=== PATIENT | female | born 1990 | race Caucasian/White ===

== ENCOUNTER 2016-06-16 09:31 | Outpatient (CLI) | payer MEDICAID ==
--- NOTE | 2016-06-16 10:00 | L&D Flow Sheet ---
LD Flowsheet Datetime Report Generated by CPN: 06/16/2016 10:00 Datetime: 06/16/2016 09:59 Vital Signs NBP Sys/Vilma/Mean (mmHg): 132 (QS system process) : 74 (QS system process) : 96 (QS system process) Pulse: 97 (QS system process)
[2016-06-16 10:34] LABS: APPEARANCE,URINE CLEAR; BILIRUBIN,URINE NEGATIVE (NEGATIVE); GLUCOSE, URINE NEGATIVE (NEGATIVE); KETONES,URINE NEGATIVE (NEGATIVE); LEUKOCYTE ESTERASE,URINE SMALL (NEGATIVE); NITRITE,URINE NEGATIVE (NEGATIVE); PROTEIN,URINE NEGATIVE (NEGATIVE); URINE SPECIFIC GRAVITY 1.006; UROBILINOGEN,URINE NEGATIVE mg/dL (<2.0)
[2016-06-16 10:45] LABS: URINE BARBITURATES SCREEN NEGATIVE; URINE METHADONE SCREEN NEGATIVE; URINE OPIATES LOW NEGATIVE; URINE PHENCYCLIDINE SCREEN NEGATIVE
[2016-06-16 10:57] LABS: ABSOLUTE BASOPHILS # (AUTO) 0.1 10^3/uL (0.0-0.2); ABSOLUTE EOSINOPHILS # (AUTO) 0.7 10^3/uL (0.0-0.6); ABSOLUTE LYMPHOCYTES (AUTO) 2.9 10^3/uL (0.5-4.7); ABSOLUTE MONOCYTES (AUTO) 0.8 10^3/uL (0.1-1.4); BASOPHILS % (AUTO) 0.7 % (0-2); EOSINOPHILS % (AUTO) 4.7 % (0-6); HEMATOCRIT 33.5 % (36.0-47.0); HEMOGLOBIN 11.7 g/dL (12.0-15.5); HGB HCT DIFFERENCE 1.6; LYMPHOCYTES % (AUTO) 18.4 % (13-45); MEAN CORPUSCULAR HEMOGLOBIN 30.2 pg (27.0-33.4); MEAN CORPUSCULAR HGB CONC 34.9 g/dL (32.0-36.0); MEAN CORPUSCULAR VOLUME 87 fl (80-97); MONOCYTES % (AUTO) 5.3 % (3-13); RED BLOOD COUNT 3.87 10^6/uL (3.72-5.28); RED CELL DISTRIBUTION WIDTH 12.5 % (11.5-14.0); SEGMENTED NEUTROPHILS % (AUTO) 70.9 % (42-78); WHITE BLOOD COUNT 15.5 10^3/uL (4.0-10.5)
[2016-06-16 11:24] LABS: ALANINE AMINOTRANSFERASE 22 U/L (9-52); ALBUMIN 3.6 g/dL (3.5-5.0); ALKALINE PHOSPHATASE 124 U/L (38-126); ANION GAP 9 (5-19); ASPARTATE AMINO TRANSFERASE 18 U/L (14-36); BILIRUBIN,TOTAL 0.5 mg/dL (0.2-1.3); BLOOD UREA NITROGEN 11 mg/dL (7-20); CALCIUM 9.3 mg/dL (8.4-10.2); CARBON DIOXIDE 22 mmol/L (22-30); CHLORIDE 105 mmol/L (98-107); CREATININE RESULT 0.48 mg/dL (0.52-1.25); GLUCOSE 73 mg/dL (75-110); LDH 463 U/L (313-618); POTASSIUM 4.3 mmol/L (3.6-5.0); SODIUM 135.6 mmol/L (137-145); TOTAL PROTEIN 6.7 g/dL (6.3-8.2); URIC ACID 3.7 mg/dL (2.5-6.2)
--- NOTE | 2016-06-23 09:55 | Non Stress Test Report ---
Non Stress Test Datetime Report Generated by CPN: 06/23/2016 09:55 DEMOGRAPHIC EGA NST: 37.0 INDICATION Indication for Study: Ordered by Provider Indication for Study (NST) Other: pih work up MONITORING Monitor Explained: Monitor Explained; Test Explained; Patient Verbalized Understanding Time on Monitor: 06/16/2016 10:05 Time off Monitor: 06/16/2016 11:42 NST Duration: 97 NST INTERVENTIONS NST Interventions: PO Hydration; Reposition Patient BABY A: [id number] BABY A Movement : Present Contraction Frequency : x1 FHR Baseline : 135 Accelerations : 15X15 Decelerations : None Variability : Moderate 6-25bpm NST Review: Meets Criteria for Reactive NST NST Review and Verified By : Cheyenne RN NST Results: Reactive NST REPORT Report Trigger: Send Report
== END 2016-06-16 11:50 | disposition home or self-care (01) ==
LOC: LC 09:31
PROVIDERS: ATTEND Obstetrics & Gynecology
PROC: 4A1HXCZ Monitoring of Products of Conception, Cardiac Rate, External Approach (ICD-10-PCS; principal; 2016-06-16)
DX: O14.93 Unspecified pre-eclampsia, third trimester (principal); Z3A.37 37 weeks gestation of pregnancy
CPT/HCPCS: 36415; 59025; 80053; 80307; 81001; 83615; 84550; 85025

== ENCOUNTER 2016-06-23 10:00 | Inpatient (IN) | payer MEDICAID ==
[2016-06-23] MEDS ORDERED: OXYTOCIN/NORMAL SALINE 1,000 ML IV PRN (10:03)
[2016-06-23] MEDS ORDERED: RINGERS SOLUTION,LACTATED 300 ML IV ONE (10:03)
[2016-06-23 10:26] LABS: APPEARANCE,URINE TURBID; BILIRUBIN,URINE NEGATIVE (NEGATIVE); GLUCOSE, URINE NEGATIVE (NEGATIVE); KETONES,URINE NEGATIVE (NEGATIVE); LEUKOCYTE ESTERASE,URINE LARGE (NEGATIVE); NITRITE,URINE NEGATIVE (NEGATIVE); PROTEIN,URINE NEGATIVE (NEGATIVE); URINE SPECIFIC GRAVITY 1.017; UROBILINOGEN,URINE NEGATIVE mg/dL (<2.0)
[2016-06-23] MEDS ORDERED: LIDOCAINE 1% INJ-PF (10 MG/ML) 30 ML SDV ONE (10:32)
[2016-06-23] MEDS ORDERED: OXYTOCIN/NORMAL SALINE 20 UNIT/1,000 ML RTUINJ ONE (10:32)
[2016-06-23] MEDS ORDERED: MISOPROSTOL 0.2 MG TABLET ONE (10:32)
[2016-06-23 10:41] LABS: URINE BARBITURATES SCREEN NEGATIVE; URINE METHADONE SCREEN NEGATIVE; URINE OPIATES LOW NEGATIVE; URINE PHENCYCLIDINE SCREEN NEGATIVE
[2016-06-23 10:43] LABS: ABSOLUTE BASOPHILS # (AUTO) 0.1 10^3/uL (0.0-0.2); ABSOLUTE EOSINOPHILS # (AUTO) 0.7 10^3/uL (0.0-0.6); ABSOLUTE LYMPHOCYTES (AUTO) 2.8 10^3/uL (0.5-4.7); ABSOLUTE MONOCYTES (AUTO) 0.9 10^3/uL (0.1-1.4); ABSOLUTE NEUT (AUTO) 10.9 10^3/uL (1.7-8.2); BASOPHILS % (AUTO) 0.5 % (0-2); EOSINOPHILS % (AUTO) 4.9 % (0-6); HEMOGLOBIN 11.5 g/dL (12.0-15.5); HGB HCT DIFFERENCE 2.5; LYMPHOCYTES % (AUTO) 17.9 % (13-45); MEAN CORPUSCULAR HGB CONC 35.9 g/dL (32.0-36.0); MEAN CORPUSCULAR VOLUME 86 fl (80-97); MONOCYTES % (AUTO) 5.9 % (3-13); RED CELL DISTRIBUTION WIDTH 12.4 % (11.5-14.0); SEGMENTED NEUTROPHILS % (AUTO) 70.8 % (42-78); WHITE BLOOD COUNT 15.4 10^3/uL (4.0-10.5)
[2016-06-23] MEDS: RINGERS SOLUTION,LACTATED 1,000 ML IV PRN ×2 (11:49→21:28)
--- NOTE | 2016-06-23 12:00 | L&D Flow Sheet ---
LD Flowsheet Datetime Report Generated by CPN: 06/23/2016 12:00 Datetime: 06/23/2016 11:50 NBP Sys/Vilma/Mean (mmHg): 119 (QS system process) : 70 (QS system process) : 89 (QS system process) Pulse: 86 (QS system process) I/O Interventions: Up to BR (Sandra Hurtado RN) Communication: RN at Bedside (Sandra Hurtado RN) LaborFlag: Antepartum (QS system process) Datetime: 06/23/2016 11:45 Stage of : Antepartum (Sandra Hurtado RN) Respirations: 18 (Sandra Hurtado RN) Monitor Mode: External (Sandra Hurtado RN) Monitor Interventions for UA: [place] [employer] Adjusted (Sandra Hurtado RN) Frequency (min): IRRITABILITY (Sandra Hurtado RN) Quality: Mild (Sandra Hurtado RN) Resting Tone (Palpate): Relaxed (Sandra Hurtado RN) Monitor Mode: External US (Sandra Hurtado RN) Monitor Interventions for FHR: Ultrasound Adjusted (Sandra Hurtado RN) FHR Baseline Rate : 135 (Sandra Hurtado RN) FHR Baseline Changes: No Baseline Change (Sandra Hurtado RN) Variability: Moderate 6-25 bpm (Sandra Hurtado RN) Accelerations: 15X15 (Sandra Hurtado RN) Decelerations: None (Sandra Hurtado RN) Pitocin (milliunit): Pitocin Increased to (milliunits) @ 4 (Sandra Hurtado, MADDY) Communication: RN at Bedside; RN Reviewed Strip (Sandra Hurtado RN) LaborFlag: Antepartum (QS system process) Datetime: 06/23/2016 11:30 Stage of : Antepartum (Sandra Hurtado RN) Respirations: 18 (Sandra Hurtado RN) Monitor Mode: External (Sandra Eliza Roulund, RN) Monitor Interventions for UA: [place] [employer] Adjusted (Sandra Hurtado, MADDY) Frequency (min): IRRITABILITY (Sandra Hurtado, RN) Quality: Mild (Sandra Hurtado, RN) Resting Tone (Palpate): Relaxed (Sandra Hurtado, RN) Monitor Mode: External US (Sandra Hurtado, RN) Monitor Interventions for FHR: Ultrasound Adjusted (Sandra Hurtado, RN) FHR Baseline Rate : 140 (Sandra Hurtado, MADDY) FHR Baseline Changes: No Baseline Change (Sandra Hurtado, MADDY) Variability: Moderate 6-25 bpm (Sandra Hurtado, RN) Accelerations: 15X15 (Sandra Hurtado, RN) Decelerations: None (Sandra Hurtado, MADDY) Pain Presence: None/Denies (Sandra Hurtado, MADDY) Pain Type: N/A (Sandra Hurtado, MADDY) Pain Relief Measures: Comfort Measures (Sandra Hurtado, MADDY) Pain Coping: Talking Through Contractions (Sandra Hurtado, MADDY) Pitocin (milliunit): Pitocin Remains (milliunits) @ 2 (Sandra Hurtado, MADDY) Comfort Measures: Family Support (Sandra Hurtado, MADDY) Communication: RN at Bedside; RN Reviewed Strip; Report Given to @ Brijesh ULRICH CNM (Sandra Hurtado, MADDY) Notification Reason: Status Update; Status; Membrane Status (Sandra Hurtado, MADDY) LaborFlag: Antepartum (QS system process) Datetime: 06/23/2016 11:25 Stage of : Antepartum (Sandra Hurtado, MADDY) Monitor Interventions for UA: [place] [employer] Adjusted (Sandra Hurtado, RN) Monitor Interventions for FHR: Ultrasound Adjusted (Sandra Hurtado, MADDY) Dilatation (cm): 1.5 (Sandra Hurtado, RN) Effacement (%): 20 (Sandra Hurtado, RN) Station: -3 (Sandra Hurtado, RN) Exam by: DANISHA HURTADO RN (Sandra Hurtado, RN) Membrane Status: Intact (Sandra Hurtado, RN) Vaginal Bleeding: None (Sandra Hurtado, MADDY) Cervix, Consistency: Moderate (Sandra Hurtado, MADDY) Cervix, Position: Posterior (Sandra Hurtado, RN) Pitocin (milliunit): Pitocin Started (milliunits) @ 2 (Sandra Hurtado, MADDY) Procedures: Sterile Vag Exam (Sandra Hurtado, MADDY) Instructional Method: Verbal; Patient Instructed; Family/Support Person Instructed; Verbalized Understanding (Sandra Hurtado, MADDY) Plan of Care: Plan of Care Discussed; Induction (Sandra Hurtado RN) Unit Routine: Medications (Sandra Hurtado RN) Labor/Induction: Induction (Sandra Hurtado RN) Pain Management: Pain Scale/Goals; Comfort Measures (Sandra Hurtado RN) Medications: Pitocin (Sandra Hurtado, MADDY) Communication: RN at Bedside; RN Reviewed Strip (Sandra Hurtado RN) Datetime: 06/23/2016 11:19 NBP Sys/Vilma/Mean (mmHg): 142 (QS system process) : 78 (QS system process) : 100 (QS system process) Pulse: 94 (QS system process) LaborFlag: Antepartum (QS system process) Datetime: 06/23/2016 11:10 Stage of : Antepartum (Sandra Hurtado RN) Procedures: Consents Signed (Sandra Hurtado RN) I/O Interventions: Up to BR (Sandra Hurtado RN) Communication: RN at Bedside; RN Reviewed Strip (Sandra Hurtado RN) Datetime: 06/23/2016 10:44 NBP Sys/Vilma/Mean (mmHg): 124 (QS system process) : 75 (QS system process) : 95 (QS system process) Pulse: 96 (QS system process) LaborFlag: Antepartum (QS system process) Datetime: 06/23/2016 10:23 IV/Blood Work: Labs Drawn (Sandra Tesfayeluevens, RN) Communication: RN at Bedside (Sandra Tesfayelund, RN) Datetime: 06/23/2016 10:20 Stage of : Antepartum (Sandra Hurtado, RN) IV/Blood Work: IV Started; IV Bolus Started; New IV Bag Hung (Sandra Hurtado, RN) Communication: RN at Bedside; RN Reviewed Strip (Sandra Hurtado, RN) Datetime: 06/23/2016 10:15 Stage of : Antepartum (Sandra Hurtado RN) NBP Sys/Vilma/Mean (mmHg): 129 (QS system process) : 85 (QS system process) : 101 (QS system process) Pulse: 106 (QS system process) Monitor Mode: External (Sandra Hurtado RN) Monitor Interventions for UA: [employer] Adjusted (Sandra Hurtado RN) Resting Tone (Palpate): Relaxed (Sandra Hurtado RN) Monitor Mode: External US (Sandra Hurtado RN) Monitor Interventions for FHR: Ultrasound Adjusted (Sandra Hurtado RN) Pain Scale: 0 (Sandra Hurtado RN) Pain Presence: None/Denies (Sandra Hurtado RN) Pain Type: N/A (Sandra Hurtado RN) Pain Goal: 1 (Sandra Hurtado RN) Pain Relief Measures: Comfort Measures (Sandra Hurtado RN) Membrane Status: Intact (Sandra Hurtado RN) Vaginal Bleeding: None (Sadnra Hurtado RN) Level of Consciousness: Fully Conscious (Sandra Hurtado RN) DTR's/Clonus: DTRs 1+; No Clonus (Sandra Hurtado RN) Headache: [place] (Sandra Hurtado RN) Breath Sounds, Left: Clear and Equal (Sandra Hurtado RN) Breath Sounds, Right: Clear and Equal (Sandra Hurtado RN) Nausea/Vomiting: [place] (Sandra Hurtado RN) RUQ Epigastric Pain: [place] (Sandra Hurtado, MADDY) Oxygen Method: Room Air (Sandra Hurtado, MADDY) Patient Position/Activity: Left Tilt; Low Fowlers (Sandra Hurtado, MADDY) Comfort Measures: Family Support (Sandra Hurtado RN) I/O Interventions: Popsicle; Clear Liquids Given; Up to BR (Sandra Hurtado, MADDY) Anesthesia Plans: None (Sandra Hurtado RN) Instructional Method: Verbal; Patient Instructed; Family/Support Person Instructed; Verbalized Understanding (Sandra Hurtado RN) Plan of Care: Plan of Care Discussed; Vaginal Delivery; Induction (Sandra Hurtado, MADDY) Unit Routine: [place] to Room; Call Elder; Bed; Visiting Policy; Waiting Areas; Phone/Cell Phone Use; Photography; Unit Personnel; Handwashing; Monitoring; Safety/Fall Risk Prevention; Diet/Nutrition Services; Bathroom Privileges (Sandra Hurtado, MADDY) Labor/Induction: Labor Stages; Induction (Sandra Hurtado RN) Pain Management: Epidural; Pain Scale/Goals; Comfort Measures (Sandra Hurtado RN) Medications: Pitocin (Sandra Hurtado, MADDY) Related: Common Discomforts of ; Maternal Physical Changes; Maternal Emotional Changes; Nutrition; Hydration; Activity and Rest (Sandra Hurtado, MADDY) Communication: RN at Bedside; RN Reviewed Strip (Sandra Hurtado RN) LaborFlag: Antepartum (QS system process)
--- NOTE | 2016-06-23 14:00 | L&D Flow Sheet ---
LD Flowsheet Datetime Report Generated by CPN: 06/23/2016 14:00 Datetime: 06/23/2016 13:56 Pulse: 97 (QS system process) SpO2 (%): 97 (QS system process) LaborFlag: Labor (QS system process) Datetime: 06/23/2016 13:51 Pulse: 92 (QS system process) SpO2 (%): 97 (QS system process) LaborFlag: Labor (QS system process) Datetime: 06/23/2016 13:49 NBP Sys/Vilma/Mean (mmHg): 121 (QS system process) : 85 (QS system process) : 98 (QS system process) Pulse: 90 (QS system process) LaborFlag: Labor (QS system process) Datetime: 06/23/2016 13:48 Comments: RN at bedside adjusting monitors (Molly Camp, RNC) Datetime: 06/23/2016 13:46 Pulse: 101 (QS system process) SpO2 (%): 97 (QS system process) LaborFlag: Labor (QS system process) Datetime: 06/23/2016 13:45 Stage of : Labor (Sandra Hurtado RN) Respirations: 18 (Sandra Hurtado RN) Temperature (F): 98.2 (Sandra Hurtado RN) Temperature (C): 36.8 (QS system process) Monitor Mode: External (Sandra Hurtado RN) Monitor Interventions for UA: [place] Adjusted (Sandra Hurtado RN) Frequency (min): 2-3 (Sandra Hurtado RN) Quality: Moderate (Sandra Hurtado RN) Duration (sec): 60-70 (Sandra Hurtado, MADDY) Resting Tone (Palpate): Relaxed (Sandra Hurtado RN) Monitor Mode: External US (Sandra Hurtado RN) Monitor Interventions for FHR: Ultrasound Adjusted (Sandra Hurtado RN) FHR Baseline Rate : 130 (Sandra Hurtado RN) FHR Baseline Changes: No Baseline Change (Sandra Hurtado, MADDY) Variability: Moderate 6-25 bpm (Sandra Hurtado, RN) Accelerations: 15X15 (Sandra Hurtado, RN) Decelerations: None (Sandra Hurtado, MADDY) Pain Relief Measures: Comfort Measures (Sandra Hurtado RN) Pain Coping: Breathing Through Contractions (Sandra Hurtado RN) Pitocin (milliunit): Pitocin Increased to (milliunits) @ 18 (Sandra Hurtado RN) IV/Blood Work: IV Infusing per Order (Sandra Hurtado RN) Comfort Measures: Breathing/Relaxation; Rocking Chair; Family Support (Sandra Hurtado RN) Communication: RN at Bedside; RN Reviewed Strip (Sandra Hurtado RN) LaborFlag: Labor (QS system process) Datetime: 06/23/2016 13:41 Pulse: 90 (QS system process) SpO2 (%): 97 (QS system process) LaborFlag: Labor (QS system process) Datetime: 06/23/2016 13:36 Pulse: 93 (QS system process) SpO2 (%): 97 (QS system process) LaborFlag: Labor (QS system process) Datetime: 06/23/2016 13:31 NBP Sys/Vilma/Mean (mmHg): 134 (QS system process) : 63 (QS system process) : 90 (QS system process) Pulse: 93 (QS system process) LaborFlag: Labor (QS system process) Datetime: 06/23/2016 13:30 Stage of : Labor (aSndra Hurtado RN) Respirations: 18 (Sandra Hurtado RN) Monitor Mode: External (Sandra Hurtado RN) Monitor Interventions for UA: [place] Adjusted (Sandra Hurtado RN) Frequency (min): 2-2.5 (Sandra Hurtado RN) Quality: Moderate (Sandra Hurtado RN) Duration (sec): 60-70 (Sandra Hurtado, MADDY) Resting Tone (Palpate): Relaxed (Sandra Hurtado, MADDY) Monitor Mode: External US (Sandra Hurtado RN) Monitor Interventions for FHR: Ultrasound Adjusted (Sandra Hurtado RN) FHR Baseline Rate : 135 (Sandar Hurtado RN) FHR Baseline Changes: No Baseline Change (Sandra Hurtado RN) Accelerations: 15X15 (Sandra Hurtado RN) Decelerations: None (Sandra Hurtado RN) Pain Scale: 3 (Sandra Hurtado RN) Pain Presence: Intermittent (Sandra Hurtado RN) Pain Type: Contraction (Sandra Hurtado, RN) Pain Location: Abdomen (Sandra Hurtado, RN) Pain Relief Measures: Comfort Measures (Sandra Hurtado, MADDY) Pain Coping: Talking Through Contractions (Sandra Hurtado, MADDY) Pitocin (milliunit): Pitocin Increased to (milliunits) @ 16 (Sandra Hurtado, RN) Comfort Measures: Family Support (Sandra Hurtado, MADDY) Communication: RN at Bedside; RN Reviewed Strip (Sandra Hurtado RN) LaborFlag: Labor (QS system process) Datetime: 06/23/2016 13:15 Stage of : Labor (Sandra Hurtado RN) Respirations: 18 (Sandra Hurtado RN) Monitor Mode: External (Sandra Hurtado, RN) Monitor Interventions for UA: [place] Adjusted (Sandra Hurtado RN) Frequency (min): 2-3 (Sandra Hurtado, MADDY) Quality: Moderate (Sandra Hurtado, RN) Duration (sec): 60-70 (Sandra Hurtado, RN) Resting Tone (Palpate): Relaxed (Sandra Hurtado, RN) Monitor Mode: External US (Sandra Hurtado RN) Monitor Interventions for FHR: Ultrasound Adjusted (Sandra Hurtado RN) Comments: UTD- MOVING EFM (Sandra Hurtado, MADDY) Pain Relief Measures: Comfort Measures (Sandra Hurtado RN) Pain Coping: Talking Through Contractions (Sandra Hurtado, MADDY) Pitocin (milliunit): Pitocin Increased to (milliunits) @ 14 (Sandra Hurtado, RN) IV/Blood Work: IV Infusing per Order (Sandra Hurtado, MADDY) Comfort Measures: Rocking Chair; Family Support (Sandra Hurtado, RN) I/O Interventions: Up to BR (Sandra Hurtado, MADYD) Communication: RN at Bedside; RN Reviewed Strip (Sandra Hurtado RN) LaborFlag: Labor (QS system process) Datetime: 06/23/2016 13:02 Stage of : Labor (Sandra Hurtado RN) Respirations: 18 (Sandra Hurtado RN) Monitor Mode: External (Sandra Hurtado RN) Frequency (min): 2-3 (Sandra Hurtado RN) Quality: Moderate (Sandra Hurtado RN) Duration (sec): 60-70 (Sandra Hurtado, MADDY) Resting Tone (Palpate): Relaxed (Sandra Hurtado, MADDY) Monitor Mode: External US (Sandra Hurtado RN) FHR Baseline Rate : 130 (Sandra Hurtado RN) FHR Baseline Changes: No Baseline Change (Sandra Hurtado RN) Variability: Moderate 6-25 bpm (Sandra Hurtado, MADDY) Accelerations: 15X15 (Sandra Hurtado, MADDY) Decelerations: None (Sandra Hurtado RN) Pain Scale: 2 (Sandra Hurtado RN) Pain Presence: Intermittent (Sandra Hurtado RN) Pain Type: Contraction (Sandra Hurtado RN) Pain Location: Abdomen (Sandra Hurtado, MADDY) Pain Relief Measures: Comfort Measures (Sandra Hurtado RN) Pain Coping: Talking Through Contractions (Sandra Hurtado, MADDY) Pitocin (milliunit): Pitocin Increased to (milliunits) @ 12 (Sandra Hurtado, MADDY) IV/Blood Work: IV Infusing per Order (Sandra Hurtado, MADDY) Patient Position/Activity: Left Lateral; Low Fowlers (Sandra Hurtado, MADDY) Comfort Measures: Family Support (Sandra Hurtado, MADDY) Communication: RN at Bedside; RN Reviewed Strip (Sandra Hurtado RN) LaborFlag: Labor (QS system process) Datetime: 06/23/2016 12:49 NBP Sys/Vilma/Mean (mmHg): 120 (QS system process) : 67 (QS system process) : 88 (QS system process) Pulse: 85 (QS system process) LaborFlag: Labor (QS system process) Datetime: 06/23/2016 12:45 Stage of : Labor (Sandra Hurtado RN) Respirations: 18 (Sandra Hurtado RN) Monitor Mode: External (Sandra Hurtado RN) Frequency (min): 2-3 (Sandra Hurtado RN) Quality: Mild/Moderate (Sandra Hurtado RN) Duration (sec): 60-70 (Sandra Hurtado, MADDY) Resting Tone (Palpate): Relaxed (Sandra Hurtado, MADDY) Monitor Mode: External US (Sandra Hurtado RN) FHR Baseline Rate : 125 (Sandra Hurtado RN) FHR Baseline Changes: No Baseline Change (Sandra Huratdo RN) Variability: Moderate 6-25 bpm (Sandra Hurtado RN) Accelerations: 15X15 (Sandra Hurtado, MADDY) Decelerations: None (Sandra Hurtado RN) Pain Scale: 2 (Sandra Hurtado, MADDY) Pain Presence: Intermittent (Sandra Hurtado RN) Pain Type: Cramping; Contraction (Sandra Hurtado, MADDY) Pain Location: Abdomen (Sandra Hurtado, MADDY) Pain Relief Measures: Comfort Measures (Sandra Hurtado, MADDY) Pain Coping: Talking Through Contractions (Sandra Hurtdao, MADDY) Pitocin (milliunit): Pitocin Increased to (milliunits) @ 10 (Sandra Hurtado, MADDY) IV/Blood Work: IV Infusing per Order (Snadra Hurtado, RN) Patient Position/Activity: Left Lateral; Low Fowlers (Sandra Hurtado, MADDY) Comfort Measures: Family Support (Sandra Hurtado, MADDY) Communication: RN at Bedside; RN Reviewed Strip (Sandra Hurtado, MADDY) LaborFlag: Labor (QS system process) Datetime: 06/23/2016 12:30 Stage of : Labor (Sandra Hurtado RN) Stage of : Antepartum (Sandra Hurtado, MADDY) Respirations: 18 (Sandra Hurtado RN) Monitor Mode: External (Sandra Hurtado RN) Monitor Interventions for UA: [place] Adjusted (Sandra Hurtado RN) Frequency (min): 2-3.5 (Sandra Hurtado RN) Quality: Mild/Moderate (Sandra Hurtado RN) Duration (sec): 60-70 (Sandra Hurtado, MADDY) Resting Tone (Palpate): Relaxed (Sandra Hurtado RN) Monitor Mode: External US (Sandra Hurtado RN) Monitor Interventions for FHR: Ultrasound Adjusted (Sandra Hurtado RN) FHR Baseline Rate : 135 (Sandra Hurtado RN) FHR Baseline Changes: No Baseline Change (Sandra Hurtado RN) Variability: Moderate 6-25 bpm (Sandra Hurtado RN) Accelerations: 15X15 (Sandra Hurtado, MADDY) Decelerations: None (Sandra Hurtado, MADDY) Pain Scale: 2 (Sanrda Hurtado RN) Pain Presence: Intermittent (Sandra Hurtado RN) Pain Type: Cramping; Contraction (Sandra Hurtado RN) Pain Location: Abdomen (Sandra Hurtado RN) Pain Relief Measures: Comfort Measures (Sandra Hurtado RN) Pain Coping: Talking Through Contractions (Sandra Hurtado RN) Pitocin (milliunit): Pitocin Increased to (milliunits) @ (Annotations: 8) (Molly Augustin C) Patient Position/Activity: Left Lateral; Low Fowlers (Sandra Hurtado RN) Comfort Measures: Family Support (Sandra Hurtado RN) Communication: RN at Bedside; RN Reviewed Strip (Sandra Hurtado RN) LaborFlag: Labor (QS system process) Datetime: 06/23/2016 12:27 Comments: RN to bedside, u/s and toco adjusted (Molly Augustin, [facility]) Datetime: 06/23/2016 12:19 NBP Sys/Vilma/Mean (mmHg): 106 (QS system process) : 60 (QS system process) : 77 (QS system process) Pulse: 89 (QS system process) LaborFlag: Antepartum (QS system process) Datetime: 06/23/2016 12:15 Stage of : Antepartum (Sandra Hurtado RN) Respirations: 18 (Sandra Hurtado RN) Monitor Mode: External (Sandra Hurtado RN) Frequency (min): 2-3.5 (Sandra Hurtado, MADDY) Quality: Mild/Moderate (Sandra Hurtado RN) Duration (sec): 60-70 (Sandra Hurtado, RN) Resting Tone (Palpate): Relaxed (Sandra Hurtado, MADDY) Monitor Mode: External US (Sandra Hurtado RN) Monitor Interventions for FHR: Ultrasound Adjusted (Sandra Hurtado RN) FHR Baseline Rate : 145 (Sandra Hurtado RN) FHR Baseline Changes: No Baseline Change (Sandra Hurtado RN) Variability: Moderate 6-25 bpm (Sandra Hurtado, MADDY) Accelerations: 15X15 (Sandra Hurtado, RN) Decelerations: None (Sandra Hurtado, MADDY) Pain Relief Measures: Comfort Measures (Sandra Hurtado RN) Pain Coping: Talking Through Contractions (Sandra Hurtado RN) Pitocin (milliunit): Pitocin Remains (milliunits) @ 6 (Sandra Hurtado, RN) IV/Blood Work: IV Infusing per Order (Sandra Hurtado, MADDY) Patient Position/Activity: Left Lateral; Low Fowlers (Sandra Hurtado, MADDY) Comfort Measures: Family Support (Sandra Hurtado, MADDY) Communication: RN at Bedside; RN Reviewed Strip (Sandra Hurtado RN) LaborFlag: Antepartum (QS system process) Datetime: 06/23/2016 12:02 Stage of : Antepartum (Sandra Hurtado RN) Respirations: 18 (Sandra Hurtado RN) Monitor Mode: External (Sandra Hurtado RN) Monitor Interventions for UA: [place] Adjusted (Sandra Hurtado RN) Frequency (min): OCC (Sandra Hurtado RN) Quality: Mild (Sandra Hurtado RN) Resting Tone (Palpate): Relaxed (Sandra Hurtado RN) Monitor Mode: External US (Sandra Hurtado RN) Monitor Interventions for FHR: Ultrasound Adjusted (Sandra Hurtado RN) FHR Baseline Rate : 145 (Sandra Hurtado RN) FHR Baseline Changes: No Baseline Change (Sandra Hurtado RN) Variability: Moderate 6-25 bpm (Sandra Hurtado RN) Accelerations: 15X15 (Sandra Hurtado RN) Decelerations: None (Sandra Hurtado RN) Pain Scale: 1 (Sandra Hurtado RN) Pain Type: Cramping (Sandra Hurtado, MADDY) Pain Location: Abdomen (Sandra Hurtado RN) Pain Relief Measures: Comfort Measures (Sandra Hurtado RN) Pain Coping: Talking Through Contractions (Sandra Hurtado RN) Pitocin (milliunit): Pitocin Remains (milliunits) @ 6 (Sandra Hurtado RN) Patient Position/Activity: Left Lateral; Low Fowlers (Sandra Hurtado, MADDY) Comfort Measures: Family Support (Sandra Hurtado, MADDY) Communication: RN at Bedside; RN Reviewed Strip (Sandra Hurtado, MADDY) LaborFlag: Antepartum (QS system process)
--- NOTE | 2016-06-23 16:00 | L&D Flow Sheet ---
LD Flowsheet Datetime Report Generated by CPN: 06/23/2016 16:00 Datetime: 06/23/2016 15:58 Patient Position/Activity: Left Tilt; Semi-Fowlers (Bernice Vitrano, RN) Datetime: 06/23/2016 15:56 Pulse: 86 (QS system process) SpO2 (%): 96 (QS system process) LaborFlag: Labor (QS system process) Datetime: 06/23/2016 15:51 Pulse: 90 (QS system process) SpO2 (%): 96 (QS system process) LaborFlag: Labor (QS system process) Datetime: 06/23/2016 15:50 NBP Sys/Vilma/Mean (mmHg): 125 (QS system process) : 65 (QS system process) : 86 (QS system process) Pulse: 92 (QS system process) LaborFlag: Labor (QS system process) Datetime: 06/23/2016 15:46 Pulse: 91 (QS system process) SpO2 (%): 96 (QS system process) LaborFlag: Labor (QS system process) Datetime: 06/23/2016 15:41 Pulse: 94 (QS system process) SpO2 (%): 97 (QS system process) LaborFlag: Labor (QS system process) Datetime: 06/23/2016 15:36 Pulse: 107 (QS system process) SpO2 (%): 97 (QS system process) LaborFlag: Labor (QS system process) Datetime: 06/23/2016 15:31 Pulse: 102 (QS system process) SpO2 (%): 96 (QS system process) LaborFlag: Labor (QS system process) Datetime: 06/23/2016 15:30 Stage of : Labor (Sandra Hurtado RN) Respirations: 20 (Sandra Hurtado RN) Monitor Mode: External (Sandra Hurtado RN) Frequency (min): 1.5-3 (Sandra Hurtado RN) Quality: Moderate (Sandra Hurtado RN) Duration (sec): 60-70 (Sandra Hurtado RN) Resting Tone (Palpate): Relaxed (Sandra Hurtado RN) Monitor Mode: External US (Sandra Hurtdao RN) FHR Baseline Rate : 125 (Sandra Hurtado RN) FHR Baseline Changes: No Baseline Change (Sandra Hurtado RN) Variability: Moderate 6-25 bpm (Sandra Hurtado RN) Accelerations: 15X15 (Sandra Hurtado RN) Decelerations: None (Sandra Hurtado RN) Pain Scale: 3 (Sandra Hurtado RN) Pain Presence: Intermittent (Sandra Hurtado RN) Pain Type: Contraction (Sandra Hurtado RN) Pain Location: Abdomen (Sandra Hurtado RN) Pain Relief Measures: Comfort Measures (Sandra Hurtado RN) Pain Coping: Breathing Through Contractions (Sandra Hurtado RN) Pitocin (milliunit): Pitocin Remains (milliunits) @ 20 (Sandra Hurtado RN) IV/Blood Work: IV Infusing per Order (Sandra Hurtado RN) Comfort Measures: Breathing/Relaxation; Rocking Chair; Family Support (Sandra Hurtado RN) Communication: RN at Bedside; RN Reviewed Strip (Sandra Hurtado RN) LaborFlag: Labor (QS system process) Datetime: 06/23/2016 15:26 Pulse: 97 (QS system process) SpO2 (%): 97 (QS system process) LaborFlag: Labor (QS system process) Datetime: 06/23/2016 15:21 Pulse: 101 (QS system process) SpO2 (%): 96 (QS system process) LaborFlag: Labor (QS system process) Datetime: 06/23/2016 15:19 NBP Sys/Vilma/Mean (mmHg): 121 (QS system process) : 67 (QS system process) : 88 (QS system process) Pulse: 90 (QS system process) LaborFlag: Labor (QS system process) Datetime: 06/23/2016 15:16 Pulse: 97 (QS system process) SpO2 (%): 97 (QS system process) LaborFlag: Labor (QS system process) Datetime: 06/23/2016 15:15 Stage of : Labor (Sandra Hurtado RN) Respirations: 20 (Sandra Hurtado RN) Monitor Mode: External (Sandra Hurtado RN) Frequency (min): 1.5-3 (Sandra Hurtado RN) Quality: Moderate (Sandra Hurtado RN) Duration (sec): 60-70 (Sandra Hurtado RN) Resting Tone (Palpate): Relaxed (Sandra Hurtado, RN) Monitor Mode: External US (Sandra Hurtado RN) FHR Baseline Rate : 125 (Sandra Hurtado RN) FHR Baseline Changes: No Baseline Change (Sandra Hurtado RN) Variability: Moderate 6-25 bpm (Sandra Hurtado, RN) Accelerations: 15X15 (Sandra Hurtado, RN) Decelerations: None (Sandra Hurtado, RN) Pain Relief Measures: Comfort Measures (Sandra Hurtado, MADDY) Pain Coping: Breathing Through Contractions (Sandra Hurtado, MADDY) Pitocin (milliunit): Pitocin Remains (milliunits) @ 20 (Sandra Hurtado, RN) IV/Blood Work: IV Infusing per Order (Sandra Hurtado, RN) Comfort Measures: Breathing/Relaxation; Rocking Chair; Family Support (Sandra Hurtado, MADDY) Communication: RN at Bedside; RN Reviewed Strip (Sandra Hurtado, MADDY) LaborFlag: Labor (QS system process) Datetime: 06/23/2016 15:11 Pulse: 92 (QS system process) SpO2 (%): 97 (QS system process) LaborFlag: Labor (QS system process) Datetime: 06/23/2016 15:06 Pulse: 90 (QS system process) SpO2 (%): 97 (QS system process) LaborFlag: Labor (QS system process) Datetime: 06/23/2016 15:01 Stage of : Labor (Sandra Hurtado RN) Pulse: 104 (QS system process) Respirations: 20 (Sandra Hurtado RN) SpO2 (%): 100 (QS system process) SpO2 (%): 93 (QS system process) Monitor Mode: External (Sandra Hurtado RN) Monitor Interventions for UA: [place] Adjusted (Sandra Hurtado RN) Frequency (min): 1.5-3.5 (Sandra Hurtado RN) Quality: Moderate (Sandra Hurtado RN) Duration (sec): 60-70 (Sandra Hurtado RN) Resting Tone (Palpate): Relaxed (Sandra Hurtado RN) Monitor Mode: External US (Sandra Hurtado RN) Monitor Interventions for FHR: Ultrasound Adjusted (Sandra Hurtado RN) FHR Baseline Rate : 130 (Sandra Hurtado RN) FHR Baseline Changes: No Baseline Change (Sandra Hurtado RN) Variability: Moderate 6-25 bpm (Sandra Hurtado RN) Accelerations: 15X15 (Sandra Hurtado, RN) Decelerations: None (Sandra Hurtado RN) Pain Scale: 3 (Sandra Hurtado RN) Pain Presence: Intermittent (Sandra Hurtado RN) Pain Type: Contraction (Sandra Hurtado RN) Pain Location: Abdomen (Sandra Hurtado RN) Pain Relief Measures: Comfort Measures (Sandra Hurtado RN) Pain Coping: Breathing Through Contractions (Sandra Hurtado RN) Pitocin (milliunit): Pitocin Remains (milliunits) @ 20 (Sandra Hurtado, MADDY) IV/Blood Work: IV Infusing per Order (Sandra Hurtado, MADDY) Comfort Measures: Breathing/Relaxation; Rocking Chair; Family Support (Sandra Hurtado, MADDY) I/O Interventions: Up to BR (Sandra Hurtado RN) Communication: RN at Bedside; RN Reviewed Strip (Sandra Hurtado RN) LaborFlag: Labor (QS system process) Datetime: 06/23/2016 14:56 Pulse: 102 (QS system process) SpO2 (%): 97 (QS system process) LaborFlag: Labor (QS system process) Datetime: 06/23/2016 14:51 Pulse: 99 (QS system process) SpO2 (%): 97 (QS system process) LaborFlag: Labor (QS system process) Datetime: 06/23/2016 14:50 NBP Sys/Vilma/Mean (mmHg): 119 (QS system process) : 77 (QS system process) : 91 (QS system process) Pulse: 90 (QS system process) LaborFlag: Labor (QS system process) Datetime: 06/23/2016 14:46 Pulse: 98 (QS system process) SpO2 (%): 97 (QS system process) LaborFlag: Labor (QS system process) Datetime: 06/23/2016 14:45 Stage of : Labor (Sandra Hurtado RN) Respirations: 20 (Sandra Hurtado, MADDY) Monitor Mode: External (Sandra Hurtado, RN) Monitor Interventions for UA: [place] Adjusted (Sandra Hurtado, MADDY) Frequency (min): 1.5-4 (Sandra Hurtado RN) Quality: Moderate (Sandra Hurtado, RN) Duration (sec): 60-70 (Sandra Hurtado, RN) Resting Tone (Palpate): Relaxed (Sandra Hurtado, MADDY) Monitor Mode: External US (Sandra Hurtado, MADDY) Monitor Interventions for FHR: Ultrasound Adjusted (Snadra Hurtado, MADDY) FHR Baseline Rate : 125 (Sandra Hurtado RN) FHR Baseline Changes: No Baseline Change (Sandra Hurtado RN) Variability: Moderate 6-25 bpm (Sandra Hurtado, MADDY) Accelerations: 15X15 (Sandra Hurtado, MADDY) Decelerations: None (Sandra Hurtado, MADDY) Pain Relief Measures: Comfort Measures (Sandra Hurtado RN) Pain Coping: Breathing Through Contractions (Sandra Hurtado RN) Pitocin (milliunit): Pitocin Remains (milliunits) @ 20 (Sandra Hurtado, MADDY) IV/Blood Work: IV Infusing per Order (Sandra Hurtado, MADDY) Comfort Measures: Breathing/Relaxation; Rocking Chair; Family Support (Sandra Hurtado, MADDY) Communication: RN at Bedside; RN Reviewed Strip (Sandra Hurtado RN) LaborFlag: Labor (QS system process) Datetime: 06/23/2016 14:41 Pulse: 95 (QS system process) SpO2 (%): 97 (QS system process) LaborFlag: Labor (QS system process) Datetime: 06/23/2016 14:36 Pulse: 97 (QS system process) SpO2 (%): 97 (QS system process) LaborFlag: Labor (QS system process) Datetime: 06/23/2016 14:31 Pulse: 94 (QS system process) SpO2 (%): 97 (QS system process) LaborFlag: Labor (QS system process) Datetime: 06/23/2016 14:30 Stage of : Labor (Sandra Hurtado RN) Respirations: 20 (Sandra Hurtado RN) Monitor Mode: External (Sandra Hurtado RN) Monitor Interventions for UA: [place] Adjusted (Sandra Hurtado RN) Frequency (min): 2-3.5 (Sandra Hurtado RN) Quality: Moderate (Sandra Hurtado RN) Duration (sec): 60-70 (Sandra Hurtado RN) Resting Tone (Palpate): Relaxed (Sandra Hurtado RN) Monitor Mode: External US (Sandra Hurtado RN) Monitor Interventions for FHR: Ultrasound Adjusted (Sandra Hurtado RN) FHR Baseline Rate : 130 (Sandra Hurtado RN) FHR Baseline Changes: No Baseline Change (Sandra Hurtado RN) Variability: Moderate 6-25 bpm (Sandra Hurtado RN) Accelerations: 15X15 (Sandra Hurtado, MADDY) Decelerations: None (Sandra Hurtado RN) Pain Scale: 3 (Sandra Hurtado RN) Pain Presence: Intermittent (Sandra Hurtado RN) Pain Type: Contraction (Sandra Hurtado RN) Pain Location: Abdomen (Sandra Hurtado RN) Pain Relief Measures: Comfort Measures (Sandra Hurtado RN) Pain Coping: Breathing Through Contractions (Sandra Hurtado RN) Pitocin (milliunit): Pitocin Remains (milliunits) @ 20 (Sandra Hurtado RN) IV/Blood Work: IV Infusing per Order (Sandra Hurtado RN) Comfort Measures: Breathing/Relaxation; Rocking Chair; Family Support (Sandra Hurtado RN) Communication: RN at Bedside; RN Reviewed Strip (Sandra Hurtado RN) LaborFlag: Labor (QS system process) Datetime: 06/23/2016 14:26 Pulse: 101 (QS system process) SpO2 (%): 96 (QS system process) LaborFlag: Labor (QS system process) Datetime: 06/23/2016 14:21 Pulse: 100 (QS system process) SpO2 (%): 96 (QS system process) LaborFlag: Labor (QS system process) Datetime: 06/23/2016 14:19 NBP Sys/Vilma/Mean (mmHg): 116 (QS system process) : 64 (QS system process) : 85 (QS system process) Pulse: 93 (QS system process) LaborFlag: Labor (QS system process) Datetime: 06/23/2016 14:16 Stage of : Labor (Sandra Hurtado RN) Pulse: 98 (QS system process) Respirations: 20 (Sandra Hurtado RN) SpO2 (%): 98 (QS system process) Monitor Mode: External (Sandra Hurtado RN) Monitor Interventions for UA: [place] Adjusted (Sandra Hurtado RN) Frequency (min): 2-3 (Sandra Hurtado RN) Quality: Moderate (Sandra Hurtado RN) Duration (sec): 60-70 (Sandra Hurtado RN) Resting Tone (Palpate): Relaxed (Sandra Hurtado RN) Monitor Mode: External US (Sandra Hurtado RN) Monitor Interventions for FHR: Ultrasound Adjusted (Sandra Hurtado RN) FHR Baseline Rate : 135 (Sandra Hurtado RN) FHR Baseline Changes: No Baseline Change (Sandra Hurtado RN) Variability: Moderate 6-25 bpm (Sandra Hurtado, MADDY) Accelerations: 15X15 (Sandra Hurtado, RN) Decelerations: None (Sandra Hurtado, RN) Pain Relief Measures: Comfort Measures (Sandra Hurtado RN) Pain Coping: Breathing Through Contractions (Sandra Hurtado, RN) Pitocin (milliunit): Pitocin Remains (milliunits) @ 20 (Sandra Hurtado, RN) IV/Blood Work: IV Infusing per Order (Sandra Hurtado, MADDY) Comfort Measures: Rocking Chair; Family Support (Sandra Hurtado, RN) Communication: RN at Bedside; RN Reviewed Strip (Sandra Hurtado RN) LaborFlag: Labor (QS system process) Datetime: 06/23/2016 14:11 Pulse: 99 (QS system process) SpO2 (%): 96 (QS system process) LaborFlag: Labor (QS system process) Datetime: 06/23/2016 14:06 Pulse: 93 (QS system process) SpO2 (%): 97 (QS system process) LaborFlag: Labor (QS system process) Datetime: 06/23/2016 14:02 Stage of : Labor (Sandra Hurtado RN) Respirations: 20 (Sandra Hurtado RN) Monitor Mode: External (Sandra Hurtado RN) Monitor Interventions for UA: [place] Adjusted (Sandra Hurtado RN) Frequency (min): 2-3 (Sandra Hurtado RN) Quality: Moderate (Sandra Hurtado RN) Duration (sec): 60-70 (Sandra Hurtado, MADDY) Resting Tone (Palpate): Relaxed (Sandra Hurtado RN) Monitor Mode: External US (Sandra Hurtado RN) Monitor Interventions for FHR: Ultrasound Adjusted (Sandra Hurtado RN) FHR Baseline Rate : 135 (Sandra Hurtado RN) FHR Baseline Changes: No Baseline Change (Sandra Hurtado RN) Variability: Moderate 6-25 bpm (Sandra Hurtado, MADDY) Accelerations: 15X15 (Sandra Hurtado, MADDY) Decelerations: None (Sandra Hurtado RN) Pain Scale: 3 (Sandra Hurtado RN) Pain Presence: Intermittent (Sandra Hurtado RN) Pain Type: Contraction (Sandra Hurtado RN) Pain Location: Abdomen (Sandra Hurtado RN) Pain Relief Measures: Comfort Measures (Sandra Hurtado RN) Pain Coping: Breathing Through Contractions (Sandra Hurtado RN) Pitocin (milliunit): Pitocin Increased to (milliunits) @ (Annotations: 20) (Sandra Hurtado RN) IV/Blood Work: IV Infusing per Order (Sandra Hurtado, MADDY) Comfort Measures: Breathing/Relaxation; Rocking Chair; Family Support (Sandra Hurtado, MADDY) Communication: RN at Bedside; RN Reviewed Strip (Sandra Hurtado RN) LaborFlag: Labor (QS system process) Datetime: 06/23/2016 14:01 Pulse: 91 (QS system process) SpO2 (%): 97 (QS system process) LaborFlag: Labor (QS system process)
--- NOTE | 2016-06-23 16:06 | L&D Progress Notes ---
PROGRESS NOTES Datetime Report Generated by CPN: 06/23/2016 16:05 PROGRESS NOTE Impression: Reassuring Heart Rate Procedures: Sterile Vag Exam Plan: Continue Present Management Vital Signs : Reviewed; Within Normal Limits Comment: No change in cx-long/post/high/firm. Will continue Pitocin induction now. May need to do cervical ripening through night. VAGINAL EXAM Dilatation: 1 Effacement: 20 Station: -3 MEMBRANES Membranes: Intact FETUS A FHR - Baseline: 140 Monitoring: External US FHR Category: Category I : 38.0 Presentation: Vertex SIGNATURE SIGNATURE: [id number] SIGNATURE: [id number] Assignment: Lily Louis MD Signature: with User ID: PJones : with User ID: Danette : I personally evaluated and examined the patient in conjunction with the [facility] and agree with the assessment, treatment plan and disposition.
--- NOTE | 2016-06-23 18:00 | L&D Flow Sheet ---
LD Flowsheet Datetime Report Generated by CPN: 06/23/2016 18:00 Datetime: 06/23/2016 17:49 NBP Sys/Vilma/Mean (mmHg): 130 (QS system process) : 78 (QS system process) : 98 (QS system process) Pulse: 77 (QS system process) LaborFlag: Antepartum (QS system process) Datetime: 06/23/2016 17:30 Stage of : Antepartum (Sandra Hurtado, RN) Monitor Mode: External (Sandrajorge a Hurtado, RN) Monitor Interventions for UA: [place] Adjusted (Sandra Hurtado, RN) Frequency (min): 2-3 (Sandra Hurtado RN) Quality: Moderate (Sandra Hurtado RN) Duration (sec): 60-70 (Sandra Hurtado, RN) Resting Tone (Palpate): Relaxed (Sandra Hurtado, RN) Monitor Mode: External US (Sandra Hurtado, RN) Monitor Interventions for FHR: Ultrasound Adjusted (Sandra Hurtado RN) FHR Baseline Rate : 135 (Sandra Hurtado, RN) FHR Baseline Changes: No Baseline Change (Sandra Hurtado, RN) Variability: Moderate 6-25 bpm (Sandra Hurtado, RN) Accelerations: 15X15 (Sandra Hurtado, RN) Decelerations: None (Sandra Hurtado, RN) Pain Relief Measures: Comfort Measures (Sandra Hurtado, RN) Pain Coping: Talking Through Contractions (Sandra Hurtado, RN) IV/Blood Work: IV Infusing per Order (Sandra Hurtado, RN) Comfort Measures: Family Support (Sandra Hurtado, RN) I/O Interventions: Up to BR (Sandra Hurtado, RN) Communication: RN Reviewed Strip (Sandra Hurtado, RN) LaborFlag: Antepartum (QS system process) Datetime: 06/23/2016 17:19 NBP Sys/Vilma/Mean (mmHg): 128 (QS system process) : 74 (QS system process) : 93 (QS system process) Pulse: 82 (QS system process) LaborFlag: Labor (QS system process) Datetime: 06/23/2016 17:15 Stage of : Labor (Sandra Hurtado RN) Respirations: 18 (Sandra Hurtado RN) Monitor Mode: External (Sandra Hurtado RN) Frequency (min): 2-3 (Sandra Hurtado RN) Quality: Mild/Moderate (Sandra Hurtado RN) Duration (sec): 60-70 (Sandra Hurtado, MADDY) Resting Tone (Palpate): Relaxed (Sandra Hurtado, MADDY) Monitor Mode: External US (Sandra Hurtado RN) FHR Baseline Rate : 135 (Sandra Hurtado RN) FHR Baseline Changes: No Baseline Change (Sandra Hurtado, MADDY) Variability: Moderate 6-25 bpm (Sandra Hurtado, MADDY) Accelerations: 15X15 (Sandra Hurtado, MADDY) Decelerations: None (Sandra Hurtado, MADDY) Pain Relief Measures: Comfort Measures (Sandra Hurtado, MADDY) Pain Coping: Talking Through Contractions (Sandra Hurtado RN) IV/Blood Work: IV Infusing per Order (Sandra Hurtado RN) Comfort Measures: Family Support (Sandra Hurtado RN) Communication: RN at Bedside; RN Reviewed Strip (Sandra Hurtado RN) LaborFlag: Labor (QS system process) Datetime: 06/23/2016 17:02 Stage of : Labor (Sandra Hurtado RN) Respirations: 18 (Sandra Hurtado RN) Monitor Mode: External (Sandra Hurtado RN) Frequency (min): 1.5-2.5 (Sandra Hurtado RN) Quality: Moderate (Sandra Hurtado RN) Duration (sec): 60-70 (Sandra Hurtado RN) Resting Tone (Palpate): Relaxed (Sandra Hurtado RN) Monitor Mode: External US (Sandra Hurtado RN) FHR Baseline Rate : 125 (Sandra Hurtado RN) FHR Baseline Changes: No Baseline Change (Sandra Hurtado RN) Variability: Moderate 6-25 bpm (Sandra Hurtado RN) Accelerations: 15X15 (Sandra Hurtado RN) Decelerations: None (Sandra Hurtado RN) Pain Scale: 3 (Sandra Hurtado RN) Pain Presence: Intermittent (Sandra Hurtado RN) Pain Type: Contraction (Sandra Hurtado RN) Pain Location: Abdomen (Sandra Hurtado RN) Pain Relief Measures: Comfort Measures (Sandra Hurtado RN) Pain Coping: Breathing Through Contractions (Sandra Hurtado RN) Pitocin (milliunit): Pitocin Discontinued (Sandra Hurtado RN) IV/Blood Work: IV Infusing per Order (Sandra Hurtado RN) Patient Position/Activity: Left Lateral; Low Fowlers (Sandra Hurtado RN) Comfort Measures: Breathing/Relaxation; Family Support (Sandra Hurtado, MADDY) Instructional Method: Verbal; Patient Instructed; Family/Support Person Instructed; Verbalized Understanding (Sandra Hurtado RN) Plan of Care: Plan of Care Discussed; Induction (Sandra Hurtado RN) Labor/Induction: Cervical Ripening (Sandra Hurtado RN) Medications: Cervical Ripening (Sandra Hurtado RN) Communication: RN at Bedside; RN Reviewed Strip (Sandra Hurtado RN) LaborFlag: Labor (QS system process) Datetime: 06/23/2016 16:50 NBP Sys/Vilma/Mean (mmHg): 130 (QS system process) : 75 (QS system process) : 97 (QS system process) Pulse: 91 (QS system process) LaborFlag: Labor (QS system process) Datetime: 06/23/2016 16:29 Stage of : Labor (Sandra Hurtado RN) Respirations: 20 (Sandra Hurtado RN) Monitor Mode: External (Sandra Hurtado RN) Monitor Interventions for UA: [place] Adjusted (Sandra Hurtado RN) Frequency (min): 1.5-2.5 (Sandra Hurtado, MADDY) Quality: Moderate (Sandra Hurtado RN) Resting Tone (Palpate): Relaxed (Sanrda Hurtado, MADDY) Monitor Mode: External US (Sandra Hurtado RN) FHR Baseline Rate : 135 (Sandra Hurtado RN) FHR Baseline Changes: No Baseline Change (Sandra Hurtado RN) Variability: Moderate 6-25 bpm (Sandra Hurtado RN) Accelerations: 15X15 (Sandra Hurtado, MADDY) Decelerations: None (Sandra Hurtado RN) Pain Scale: 3 (Sandra Hurtado RN) Pain Presence: Intermittent (Sandra Hurtado RN) Pain Type: Contraction (Sandra Hurtado RN) Pain Location: Abdomen (Sandra Hurtado RN) Pain Relief Measures: Comfort Measures (Sandra Hurtado RN) Pain Coping: Breathing Through Contractions (Sandra Hurtado, MADDY) Pitocin (milliunit): Pitocin Remains (milliunits) @ 20 (Sandra Hurtado RN) IV/Blood Work: IV Infusing per Order (Sandra Hurtado, MADDY) Comfort Measures: Breathing/Relaxation; Rocking Chair; Family Support (Sandra Hurtado, MADDY) Communication: RN at Bedside; RN Reviewed Strip (Sandra Hurtado RN) LaborFlag: Labor (QS system process) Datetime: 06/23/2016 16:19 NBP Sys/Vilma/Mean (mmHg): 127 (QS system process) : 75 (QS system process) : 94 (QS system process) Pulse: 85 (QS system process) LaborFlag: Labor (QS system process) Datetime: 06/23/2016 16:15 Stage of : Labor (Sandra Hurtado RN) Monitor Mode: External (Sandra Hurtado RN) Monitor Interventions for UA: [place] Adjusted (Sandra Hurtado RN) Frequency (min): 2-3 (Sandra Hurtado RN) Quality: Moderate (Sandra Hurtado RN) Resting Tone (Palpate): Relaxed (Sandra Hurtado RN) Monitor Mode: External US (Sandra Hurtado RN) Monitor Interventions for FHR: Ultrasound Adjusted (Sandra Hurtado RN) FHR Baseline Rate : 135 (Sandra Hurtado RN) FHR Baseline Changes: No Baseline Change (Sandra Hurtado RN) Variability: Moderate 6-25 bpm (Sandra Hurtado RN) Accelerations: 15X15 (Sandra Hurtado RN) Decelerations: None (Sandra Hurtado RN) Pain Relief Measures: Comfort Measures (Sandra Hurtado RN) Pain Coping: Breathing Through Contractions (Sandra Hurtado RN) Pitocin (milliunit): Pitocin Remains (milliunits) @ 20 (Sandra Hurtado, RN) IV/Blood Work: IV Infusing per Order (Sandra Hurtado, RN) Comfort Measures: Breathing/Relaxation; Rocking Chair; Family Support (Sandra Hurtado, RN) Communication: RN at Bedside; RN Reviewed Strip (Sandra Hurtado RN) LaborFlag: Labor (QS system process) Datetime: 06/23/2016 16:02 Stage of : Labor (Sandra Hurtado, MADDY) Respirations: 20 (Sandra Hurtado RN) Monitor Mode: External (Sandra Hurtado, RN) Monitor Interventions for UA: [place] Adjusted (Sandra Hurtado RN) Frequency (min): 1.5-3.5 (Sandra Hurtado, MADDY) Quality: Moderate (Sandra Hurtado, RN) Duration (sec): 60-70 (Sandra Hurtado, RN) Resting Tone (Palpate): Relaxed (Sandra Hurtado, RN) Monitor Mode: External US (Sandra Hurtado, RN) Monitor Interventions for FHR: Ultrasound Adjusted (Sandra Hurtado, MADDY) FHR Baseline Rate : 130 (Sandra Hurtado, MADDY) FHR Baseline Changes: No Baseline Change (Sandra Hurtado, MADDY) Variability: Moderate 6-25 bpm (Sandra Hurtado, RN) Accelerations: 15X15 (Sandra Hurtado, RN) Decelerations: None (Sandra Hurtado, RN) Pain Scale: 3 (Sandra Hurtado, MADDY) Pain Presence: Intermittent (Sandra Hurtado, MADDY) Pain Type: Contraction (Sandra Hurtado, MADDY) Pain Location: Abdomen (Sandra Hurtado, MADDY) Pain Relief Measures: Comfort Measures (Sandra Hurtado, MADDY) Pain Coping: Breathing Through Contractions (Sandra Hurtado, RN) Dilatation (cm): 1.5 (Sandra Hurtado, RN) Effacement (%): 20 (Sandra Hurtado, RN) Station: -3 (Sandra Hurtado, RN) Membrane Status: Intact (Sandra Hurtado, RN) Vaginal Bleeding: None (Sandra Hurtado, MADDY) Cervix, Consistency: Firm (Sandra Hurtado, RN) Cervix, Position: Posterior (Sandra Hurtado, RN) Pitocin (milliunit): Pitocin Remains (milliunits) @ 20 (Sandra Hurtado, MADDY) IV/Blood Work: IV Infusing per Order (Sandra Hurtado, MADDY) Procedures: Sterile Vag Exam (Sandra Hurtado, RN) Comfort Measures: Breathing/Relaxation; Rocking Chair; Family Support (Sandra Hurtado, RN) I/O Interventions: Up to BR (Sandra Hurtado, RN) Communication: RN at Bedside; RN Reviewed Strip; Provider at Bedside (Sandra Hurtado, RN) Communication Comments: Brijesh APODACA CNM @ BS (Sandra Hurtado, RN) LaborFlag: Labor (QS system process) Datetime: 06/23/2016 16:00 Dilatation (cm): 1.0 (Bernice Maloney RN) Effacement (%): 20 (Bernice Maloney RN) Station: -3 (Bernice Maloney RN) Exam by: Shauna Apodaca CNM (Bernice Maloney RN) Vaginal Bleeding: None (Bernice Maloney RN) Cervix, Consistency: Firm (Bernice Maloney RN) Cervix, Position: Posterior (Bernice Maloney RN)
--- NOTE | 2016-06-23 20:00 | L&D Flow Sheet ---
LD Flowsheet Datetime Report Generated by CPN: 06/23/2016 20:00 Datetime: 06/23/2016 19:20 Stage of : Antepartum (Sandra Hurtado RN) Respirations: 18 (Sandra Hurtado RN) Monitor Mode: External (Sandra Hurtado RN) Monitor Interventions for UA: [place] Adjusted (Sandra Hurtado RN) Frequency (min): 2-3 (Sandra Hurtado RN) Quality: Mild/Moderate (Sandra Hurtado RN) Duration (sec): 60-70 (Sandra Hurtado, MADDY) Resting Tone (Palpate): Relaxed (Sandra Hurtado RN) Monitor Mode: External US (Sandra Hurtado RN) Monitor Interventions for FHR: Ultrasound Adjusted (Sandra Hurtado RN) Comments: UTD- PT SITTING UP TO EAT (Sandra Hurtado RN) Pain Presence: Intermittent (Sandra Hurtado RN) Pain Type: Cramping (Sandra Hurtado RN) Pain Location: Abdomen (Sandra Hurtado RN) Pain Relief Measures: Comfort Measures (Sandra Hurtado RN) Pain Coping: Talking Through Contractions (Sandra Hurtado RN) Patient Position/Activity: Right Tilt (Sandra Hurtado RN) Comfort Measures: Family Support (Sandra Hurtado RN) Communication: RN at Bedside; RN Reviewed Strip (Sandra Hurtado RN) Communication Comments: CARE RELINQUISHED (Sandra Hurtado RN) LaborFlag: Antepartum (QS system process) Datetime: 06/23/2016 19:19 NBP Sys/Vilma/Mean (mmHg): 109 (QS system process) : 59 (QS system process) : 81 (QS system process) Pulse: 90 (QS system process) LaborFlag: Antepartum (QS system process) Datetime: 06/23/2016 19:00 Stage of : Antepartum (Sandra Hurtado RN) Respirations: 18 (Sandra Hurtado, RN) Monitor Mode: External (Sandra Hurtado, RN) Frequency (min): 2-3 (Sandra Hurtado, RN) Quality: Mild/Moderate (Sandra Hurtado RN) Duration (sec): 60-70 (Sandra Hurtado, RN) Resting Tone (Palpate): Relaxed (Sandra Hurtado, RN) Monitor Mode: External US (Sandra Hurtado, RN) Monitor Interventions for FHR: Ultrasound Adjusted (Sandra Hurtado, RN) Comments: PT SITTING UP EATING (Sandra Hurtado, RN) Pain Relief Measures: Comfort Measures (Sandra Hurtado, RN) Pain Coping: Talking Through Contractions (Sandra Hurtado, MADDY) IV/Blood Work: IV Infusing per Order (Sandra Hurtado, RN) Comfort Measures: Family Support (Sandra Hurtado, RN) Communication: RN Reviewed Strip (Sandra Hurtado, RN) LaborFlag: Antepartum (QS system process) Datetime: 06/23/2016 18:50 NBP Sys/Vilma/Mean (mmHg): 129 (QS system process) : 79 (QS system process) : 98 (QS system process) Pulse: 86 (QS system process) LaborFlag: Antepartum (QS system process) Datetime: 06/23/2016 18:42 Monitor Interventions for UA: [place] Adjusted (Sandra Hurtado RN) Monitor Interventions for FHR: Ultrasound Adjusted (Sandra Hurtado RN) I/O Interventions: Up to BR (Sandra Hurtado RN) Datetime: 06/23/2016 18:30 Stage of : Antepartum (Sandra Hurtado RN) Monitor Mode: External (Sandra Hurtado RN) Frequency (min): 2-3 (Sandra Hurtado RN) Quality: Mild/Moderate (Sandra Hurtado, RN) Duration (sec): 60-70 (Sandra Hurtado, RN) Resting Tone (Palpate): Relaxed (Sandra Hurtado, RN) Monitor Mode: External US (Sandra Hurtado, RN) Monitor Interventions for FHR: Ultrasound Adjusted (Sandra Hurtado, RN) Pain Relief Measures: Comfort Measures (Sandra Hurtado, MADDY) Pain Coping: Talking Through Contractions (Sandra Hurtado, MADDY) IV/Blood Work: IV Infusing per Order (Sandra Hurtado, RN) Comfort Measures: Family Support (Sandra Hurtado RN) Patient Care Comments: PT GIVEN DINNER TRAY (Sandra Hurtado RN) Communication: RN at Bedside; RN Reviewed Strip (Sandra Hurtado RN) LaborFlag: Antepartum (QS system process) Datetime: 06/23/2016 18:19 NBP Sys/Vilma/Mean (mmHg): 124 (QS system process) : 76 (QS system process) : 94 (QS system process) Pulse: 88 (QS system process) LaborFlag: Antepartum (QS system process) Datetime: 06/23/2016 18:00 Stage of : Antepartum (Sandra Hurtado RN) Respirations: 18 (Sandra Hurtado RN) Temperature (F): 98.2 (Sandra Hurtado RN) Temperature (C): 36.8 (QS system process) Monitor Mode: External (Sandra Hurtado RN) Frequency (min): 2-3 (Sandra Hurtado RN) Quality: Mild/Moderate (Sandra Hurtado RN) Duration (sec): 60-70 (Sandra Hurtado RN) Resting Tone (Palpate): Relaxed (Sandra Hurtado RN) Monitor Mode: External US (Sandra Hurtado RN) FHR Baseline Rate : 130 (Sandra Hurtado RN) FHR Baseline Changes: No Baseline Change (Sandra Hurtado RN) Variability: Moderate 6-25 bpm (Sandra Hurtado, MADDY) Accelerations: 15X15 (Sandra Hurtado RN) Decelerations: None (Sandra Hurtado RN) Pain Scale: 1 (Sandra Hurtado RN) Pain Presence: Intermittent (Sandra Hurtado, MADDY) Pain Type: Cramping (Sandra Hurtado, MADDY) Pain Location: Abdomen (Sandra Hurtado, MADDY) Pain Relief Measures: Comfort Measures (Sandra Hurtado RN) Pain Coping: Talking Through Contractions (Sandra Hurtado, MADDY) IV/Blood Work: IV Infusing per Order (Sandra Hurtado, MADDY) Comfort Measures: Family Support (Sandra Hurtado, MADDY) Communication: RN at Bedside; RN Reviewed Strip (Sandra Hurtado, MADDY) LaborFlag: Antepartum (QS system process)
[2016-06-23] MEDS ORDERED: DINOPROSTONE 10 MG VAGINAL INSERT.SR ONE (20:27)
[2016-06-23] MEDS ORDERED: DINOPROSTONE 10 MG VAGINAL INSERT.SR PV PRN (20:41)
--- NOTE | 2016-06-23 22:00 | L&D Flow Sheet ---
LD Flowsheet Datetime Report Generated by CPN: 06/23/2016 22:00 Datetime: 06/23/2016 21:32 NBP Sys/Vilma/Mean (mmHg): 148 (QS system process) : 80 (QS system process) : 107 (QS system process) Pulse: 106 (QS system process) I/O Interventions: Bedpan Given (Chanel Frazier, RN) Patient Care Comments: void x1 (Chanel Frazier, RN) LaborFlag: Antepartum (QS system process) Datetime: 06/23/2016 21:15 Stage of : Antepartum (Chanel Frazier, RN) Monitor Mode: External; Palpation (Chanel Frazier, RN) Frequency (min): irregular (Chanel Frazier, RN) Quality: Mild (Chanel Frazier, RN) Duration (sec): 40-90 (Chanel Frazier, RN) Pattern: Normal: <= 5 Contractions in 10 Minutes (Chanel Frazier, RN) Resting Tone (Palpate): Relaxed (Chanel Frazier, RN) Monitor Mode: External US (Chanel Frazier, RN) Monitor Interventions for FHR: Ultrasound Adjusted (Chanel Frazier, RN) FHR Baseline Rate : 130 (Chanel Frazier, RN) FHR Baseline Changes: No Baseline Change (Chanel Frazier, RN) Variability: Moderate 6-25 bpm (Chanel Frazier, RN) Accelerations: 15X15 (Chanel Frazier, RN) Comments: UTD if decels present due to broken tracing (Chanel Frazier, RN) Communication: RN at Bedside; RN Reviewed Strip (Chanel Frazier, RN) Datetime: 06/23/2016 21:09 Monitor Interventions for FHR: Ultrasound Adjusted (Chanel Frazier, RN) Datetime: 06/23/2016 21:00 Dilatation (cm): 1.5 (Chanel Frazier, RN) Effacement (%): 20 (Chanel Frazier, RN) Station: -3 (Chanel Frazier, RN) Exam by: Gwen Frazier RN (Chanel Frazier, RN) Vaginal Bleeding: Normal Show (Chanel Frazier, RN) Cervix, Consistency: Moderate (Chanel Frazier, RN) Cervix, Position: Posterior (Chanel Frazier, RN) Cervical Ripening Agents: Cervidil (Chanel Frazier, RN) IV/Blood Work: New IV Bag Hung (Chanel Frazier, RN) Datetime: 06/23/2016 20:49 Monitor Interventions for FHR: Ultrasound Adjusted (Chanel Frazier, RN) Datetime: 06/23/2016 20:45 Stage of : Antepartum (Chanel Frazier, RN) Monitor Mode: External; Palpation (Chanel Frazier, RN) Frequency (min): 2-3 (Chanel Frazier, RN) Quality: Mild (Chanel Frazier, RN) Duration (sec): 40-60 (Chanel Frazier, RN) Pattern: Normal: <= 5 Contractions in 10 Minutes (Chanel Frazier, RN) Resting Tone (Palpate): Relaxed (Chanel Frazier, RN) Monitor Mode: External US (Chanel Frazier, RN) FHR Baseline Rate : 130 (Chanel Frazier, RN) FHR Baseline Changes: No Baseline Change (Chanel Frazier, RN) Variability: Moderate 6-25 bpm (Chanel Frazeir, RN) Accelerations: 15X15 (Chanel Frazier, RN) Decelerations: None (Chanel Frazier, RN) Communication: RN at Bedside; RN Reviewed Strip (Chanel Frazier, RN) Datetime: 06/23/2016 20:25 Level of Consciousness: Fully Conscious (Chanel Frazier, RN) DTR's/Clonus: DTRs 2+; No Clonus (Chanel Frazier, RN) Headache: Denies (Chanel Frazier, RN) Breath Sounds, Left: Clear and Equal (Chanel Frazier, RN) Breath Sounds, Right: Clear and Equal (Chanel Frazier, RN) Nausea/Vomiting: Denies (Chanel Frazier, RN) RUQ Epigastric Pain: Denies (Chanel Frazier, RN) Datetime: 06/23/2016 20:20 Stage of : Antepartum (Chanel Frazier RN) Communication: Provider Orders Received (Chanel Frazier RN) Provider Notified (Name): Dr Louis (Chanel Frazier RN) Communication Comments: Orders received to placed cervidil. May have 10mg ambien. (Chanel Frazier RN)
[2016-06-24] MEDS: RINGERS SOLUTION,LACTATED 1,000 ML IV PRN (02:39)
--- NOTE | 2016-06-24 08:00 | L&D Flow Sheet ---
LD Flowsheet Datetime Report Generated by CPN: 06/24/2016 08:00 Datetime: 06/24/2016 07:56 NBP Sys/Vilma/Mean (mmHg): 115 (QS system process) : 66 (QS system process) : 84 (QS system process) Pulse: 88 (QS system process) LaborFlag: Antepartum (QS system process) Datetime: 06/24/2016 07:55 Patient Position/Activity: Left Tilt (Lyssa Amaury, RN) Datetime: 06/24/2016 07:53 Monitor Interventions for UA: [place] Adjusted (Lyssa Amaury, RN) Monitor Interventions for FHR: Ultrasound Adjusted (Lyssa Amaury, RN) Communication: RN at Bedside (Lyssa Amaury, RN) Datetime: 06/24/2016 07:30 Monitor Mode: External (Lyssa Amaury, RN) Frequency (min): irreg (Lyssa Amaury, RN) Quality: Mild (Lyssa Amaury, RN) Resting Tone (Palpate): Relaxed (Lyssa Amaury, RN) Monitor Mode: External US (Lyssa Amaury, RN) FHR Baseline Rate : 135 (Lyssa Amaury, RN) Variability: Moderate 6-25 bpm (Lyssa Amaury, RN) Accelerations: 15X15 (Lyssa Amaury, RN) Decelerations: None (Lyssa Amaury, RN) Datetime: 06/24/2016 07:15 Monitor Mode: External (Lyssa Amaury, RN) Frequency (min): 4-5 (Lyssa Amaury, RN) Quality: Mild (Lyssa Amaury, RN) Duration (sec): 50-90 (Lyssa Amaury, RN) Resting Tone (Palpate): Relaxed (Lyssa Amaury, RN) Monitor Mode: External US (Lyssa Amaury, RN) FHR Baseline Rate : 135 (Lyssa Amaury, RN) Variability: Moderate 6-25 bpm (Lyssa Amaury, RN) Accelerations: 15X15 (Lyssa Amaury, RN) Decelerations: None (Lyssa Amaury, RN) Datetime: 06/24/2016 07:14 Patient Care Comments: pt asleep in bed laying on her left side (Lyssa Amaury, RN) Datetime: 06/24/2016 07:00 Stage of : Antepartum (Chanel Frazier, RN) Monitor Mode: External; Palpation (Chanel Frazier, RN) Frequency (min): 3.5-4.5 (Chanel Frazier, RN) Quality: Mild (Chanel Frazier, RN) Duration (sec): 80-110 (Chanel Frazier, RN) Pattern: Normal: <= 5 Contractions in 10 Minutes (Chanel Frazier, RN) Resting Tone (Palpate): Relaxed (Chanel Frzaier, RN) Monitor Mode: External US (Chanel Frazier, RN) FHR Baseline Rate : 130 (Chanel Frazier, RN) Variability: Moderate 6-25 bpm (Chanel Frazier, RN) Accelerations: 15X15 (Chanel Frazier, RN) Decelerations: None (Chanel Frazier, RN) Pain Coping: Sleeping (Chanel Frazier, RN) Communication: RN at Bedside; RN Reviewed Strip (Chanel Frazier, RN) Datetime: 06/24/2016 06:51 Pitocin (milliunit): Pitocin Started (milliunits) @ 2 (Chanel Frazier, RN) Datetime: 06/24/2016 06:45 Stage of : Antepartum (Chanel Frazier, RN) Respirations: 18 (Chanel Frazier, RN) Monitor Mode: External (Chanel Frazier, RN) Frequency (min): 3-5 (Chanel Frazier, RN) Quality: Mild (Chanel Frazier, RN) Duration (sec): 60-110 (Chanel Frazier, RN) Pattern: Normal: <= 5 Contractions in 10 Minutes (Chanel Frazier, RN) Resting Tone (Palpate): Relaxed (Chanel Frazier, RN) Monitor Mode: External US (Chanel Frazier, RN) FHR Baseline Rate : 140 (Chanel Frazier, RN) Variability: Moderate 6-25 bpm (Chanel Frazier, RN) Accelerations: 15X15 (Chanel Frazier, RN) Decelerations: None (Chanel Frazier, RN) Pain Coping: Sleeping (Chanel Frazier, RN) Communication: RN at Bedside; RN Reviewed Strip (Chanel Frazier RN) LaborFlag: Antepartum (QS system process) Datetime: 06/24/2016 06:31 Dilatation (cm): 1.5 (Chanel Frazier, RN) Effacement (%): 20 (Chanel Frazier, RN) Station: -3 (Chanel Frazier, RN) Exam by: B Frazier, RN (Chanel Frazier, RN) Vaginal Bleeding: Normal Show (Chanel Frazier, RN) Cervix, Consistency: Soft (Chanel Frazier, RN) Cervix, Position: Posterior (Chanel Frazier, RN) Datetime: 06/24/2016 06:15 Stage of : Antepartum (Chanel Frazier, RN) Monitor Mode: External (Chanel Frazier, RN) Frequency (min): 2-4.5 (Chanel Frazier, RN) Quality: Mild (Chanel Frazier, RN) Duration (sec): 60-90 (Chanel Frazier, RN) Pattern: Normal: <= 5 Contractions in 10 Minutes (Chanel Frazier, RN) Resting Tone (Palpate): Relaxed (Chanel Frazier, RN) Monitor Mode: External US (Chanel Frazier, RN) FHR Baseline Rate : 135 (Chanel Frazier, RN) Variability: Moderate 6-25 bpm (Chanel Frazier, RN) Accelerations: 15X15 (Chanel Frazier, RN) Decelerations: None (Chanel Frazier, RN) Communication: RN Reviewed Strip (Chanel Frazier, RN) Datetime: 06/24/2016 05:45 Respirations: 18 (Chanel Frazier, RN) Monitor Mode: External; Palpation (Chanel Frazier, RN) Frequency (min): 2-5 (Chanel Frazier, RN) Quality: Mild (Chanel Frazier, RN) Duration (sec): 40-100 (Chanel Frazier, RN) Pattern: Normal: <= 5 Contractions in 10 Minutes (Chanel Frazier, RN) Resting Tone (Palpate): Relaxed (Chanel Frazier, RN) Monitor Mode: External US (Chanel Frazier, RN) FHR Baseline Rate : 140 (Chanel Frazier, RN) Variability: Moderate 6-25 bpm (Chanel Frazier, RN) Accelerations: 15X15 (Chanel Frazier, RN) Decelerations: None (Chanel Frazier, RN) Pain Scale: 0 (Chanel Frazier, RN) Pain Presence: None/Denies (Chanel Frazier, RN) Pain Type: N/A (Chanel Frazier, RN) Communication: RN at Bedside; RN Reviewed Strip (Chanel Frazier, RN) LaborFlag: Antepartum (QS system process) Datetime: 06/24/2016 05:15 Stage of : Antepartum (Chanel Frazier, RN) Monitor Mode: External (Chanel Frazier, RN) Frequency (min): 5-6 (Chanel Frazier, RN) Quality: Mild (Chanel Frazier, RN) Duration (sec): 70-80 (Chanel Frazier, RN) Pattern: Normal: <= 5 Contractions in 10 Minutes (Chanel Frazier, RN) Resting Tone (Palpate): Relaxed (Chanel Frazier, RN) Monitor Mode: External US (Chanel Frazier, RN) FHR Baseline Rate : 130 (Chanel Frazier, RN) Variability: Moderate 6-25 bpm (Chanel Frazier, RN) Accelerations: 15X15 (Chanel Frazier, RN) Decelerations: None (Chanel Frazier, RN) Communication: RN Reviewed Strip (Chanel Frazier, RN) Datetime: 06/24/2016 04:45 Stage of : Antepartum (Chanel Frazier, RN) Monitor Mode: External (Chanel Frazier, RN) Frequency (min): irregular (Chanel Frazier, RN) Quality: Mild (Chanel Frazier, RN) Duration (sec): 70-90 (Chanel Frazier, RN) Pattern: Normal: <= 5 Contractions in 10 Minutes (Chanel Frazier, RN) Resting Tone (Palpate): Relaxed (Chanel Frazier, RN) Monitor Mode: External US (Chanel Frazier, RN) FHR Baseline Rate : 125 (Chanel Frazier, RN) Variability: Moderate 6-25 bpm (Chanel Frazier, RN) Accelerations: 15X15 (Chanel Frazier, RN) Decelerations: None (Chanel Frazier, RN) Communication: RN at Bedside; RN Reviewed Strip (Chanel Frazier, RN) Datetime: 06/24/2016 03:13 Comments: monitors removed for patient to walk 2nd floor for an hour (Chanel Frazier, RN) Datetime: 06/24/2016 03:00 Stage of : Antepartum (Chanel Frazier, RN) Monitor Mode: External (Chanel Frazier, RN) Frequency (min): irregular (Chanel Frazier, RN) Quality: Mild (Chanel Frazier, RN) Duration (sec): 40-90 (Chanel Frazier, RN) Pattern: Normal: <= 5 Contractions in 10 Minutes (Chanel Frazier, RN) Resting Tone (Palpate): Relaxed (Chanel Frazier, RN) Monitor Mode: External US (Chanel Frazier, RN) FHR Baseline Rate : 150 (Chanel Frazier, RN) Variability: Moderate 6-25 bpm (Chanel Frazier, RN) Accelerations: 15X15 (Chanel Frazier, RN) Decelerations: None (Chanel Frazier, RN) Communication: RN at Bedside; RN Reviewed Strip (Chanel Frazier, RN) Datetime: 06/24/2016 02:53 Communication Comments: orders received to allow patient off monitors for an hour. Start pitocin per protocol at 0600. (Chanel Frazier, RN) Datetime: 06/24/2016 02:39 IV/Blood Work: New IV Bag Hung (Chanel Frazier, RN) Datetime: 06/24/2016 02:30 Stage of : Antepartum (Chanel Frazier, RN) Respirations: 18 (Chanel Frazier, RN) Temperature (F): 98.0 (Chanel Frazier, RN) Temperature (C): 36.7 (QS system process) Monitor Mode: External; Palpation (Chanel Frazier RN) Frequency (min): 1.5-7 (Chanel Frazier RN) Quality: Mild (Chanel Frazier RN) Duration (sec): 40-90 (Chanel Frazier, MADDY) Pattern: Normal: <= 5 Contractions in 10 Minutes (Chanel Frazier RN) Resting Tone (Palpate): Relaxed (Chanel Frazier RN) Monitor Mode: External US (Chanel Frazier RN) FHR Baseline Rate : 180 (Chanel Frazier, RN) Variability: Moderate 6-25 bpm (Chanel Frazier, RN) Accelerations: 10X10 (Chanel Frazier RN) Decelerations: None (Chanel Frazier RN) Pain Scale: 0 (Chanel Frazier RN) Pain Presence: None/Denies (Chanel Frazier RN) Pain Type: N/A (Chanel Frazier RN) Communication: RN at Bedside; RN Reviewed Strip (Chanel Frazier RN) LaborFlag: Antepartum (QS system process) Datetime: 06/24/2016 02:25 I/O Interventions: Up to BR (Chanel Frazier, MADDY) Datetime: 06/24/2016 02:19 NBP Sys/Vilma/Mean (mmHg): 139 (QS system process) : 86 (QS system process) : 107 (QS system process) Pulse: 86 (QS system process) LaborFlag: Antepartum (QS system process) Datetime: 06/24/2016 02:17 Comments: IV bolus started (Chanel Frazier, RN) Datetime: 06/24/2016 02:16 Comments: cervidil pulled (Chanel Frazier, RN) Datetime: 06/24/2016 02:15 Communication: Provider at Bedside (Chanel Frazier, RN) Communication Comments: Dr Louis at bedside (Chanel Frazier, RN) Datetime: 06/24/2016 02:01 Stage of : Antepartum (Chanel Frazier, RN) Monitor Mode: External (Chanel Frazier, RN) Frequency (min): 1.5-3 (Chanel Frazier, RN) Quality: Mild (Chanel Frazier, RN) Duration (sec): 60-100 (Chanel Frazier, RN) Pattern: Normal: <= 5 Contractions in 10 Minutes (Chanel Frazier, RN) Resting Tone (Palpate): Relaxed (Chanel Frazier, RN) Monitor Mode: External US (Chanel Frazier, RN) FHR Baseline Rate : 140 (Chanel Frazier, RN) Variability: Moderate 6-25 bpm (Chanel Frazier, RN) Accelerations: 15X15 (Chanel Frazier, RN) Decelerations: None (Chanel Frazier, RN) Communication: RN at Bedside; RN Reviewed Strip (Chanel Frazier, RN) Datetime: 06/24/2016 02:00 Strip Reviewed by: Dr Louis. (Jani Tripp RN) Communication Comments: Dr Louis on unit, strip reviewed. No new orders at this time. (Jani Tripp, MADDY) Datetime: 06/24/2016 01:48 I/O Interventions: Up to BR (Chanel Frazier, RN) Datetime: 06/24/2016 01:30 Stage of : Antepartum (Chanel Frazier, RN) Monitor Mode: External (Chanel Frazier, RN) Frequency (min): irregular (Chanel Frazier, RN) Quality: Mild (Chanel Frazier, RN) Duration (sec): 40-100 (Chanel Frazier, RN) Pattern: Normal: <= 5 Contractions in 10 Minutes (Chanel Frazier, RN) Resting Tone (Palpate): Relaxed (Chanel Frazier, RN) Monitor Mode: External US (Chanel Frazier, RN) Monitor Interventions for FHR: Ultrasound Adjusted (Chanel Frazier, RN) FHR Baseline Rate : 135 (Chanel Frazier, RN) Variability: Moderate 6-25 bpm (Chanel Frazier, RN) Accelerations: Prolonged (Chanel Frazier, RN) Decelerations: None (Chanel Frazier, RN) Communication: RN at Bedside; RN Reviewed Strip (Chanel Frazier, RN) Datetime: 06/24/2016 01:24 Maternal Comments: Pt sitting on side of the bed, maternal heart rate tracing and palpated. (Jani Tripp, RN) Datetime: 06/24/2016 01:21 Maternal Comments: Pt sitting up on side of the bed, maternal heart rate tracing and palpated. (Jani Tripp, RN) Datetime: 06/24/2016 01:14 I/O Interventions: Up to BR (Chanel Frazier, RN) Datetime: 06/24/2016 01:13 I/O Interventions: Up to BR (Rucsandra Qasim, RN) Datetime: 06/24/2016 01:09 Comments: maternal HR tracing, RN at bedside (Chanel Frazier, RN) Datetime: 06/24/2016 01:04 NBP Sys/Vilma/Mean (mmHg): 127 (QS system process) : 85 (QS system process) : 99 (QS system process) Pulse: 96 (QS system process) LaborFlag: Antepartum (QS system process) Datetime: 06/24/2016 01:00 Stage of : Antepartum (Chanel Frazier, RN) Respirations: 18 (Chanel Frazier, RN) Monitor Mode: External; Palpation (Chanel Frazier, RN) Frequency (min): irregular with irritability (Chanel Frazier, RN) Quality: Mild (Chanel Frazier, RN) Duration (sec): 50-90 (Chanel Frazier, RN) Pattern: Normal: <= 5 Contractions in 10 Minutes (Chanel Frazier, RN) Resting Tone (Palpate): Relaxed (Chanel Frazier, RN) Monitor Mode: External US (Chanel Frazier, RN) Monitor Interventions for FHR: Ultrasound Adjusted (Chanel Frazier, RN) FHR Baseline Rate : 135 (Chanel Frazier, RN) FHR Baseline Changes: No Baseline Change (Chanel Frazier, RN) Variability: Moderate 6-25 bpm (Chanel Frazier, RN) Accelerations: 15X15 (Chanel Frazier, RN) Decelerations: None (Chanel Frazier, RN) Communication: RN at Bedside; RN Reviewed Strip (Chanel Frazier, RN) LaborFlag: Antepartum (QS system process) Datetime: 06/24/2016 00:48 Monitor Interventions for FHR: Ultrasound Adjusted (Chanel Frazier, RN) Comments: maternal HR tracing, RN at bedside (Chanel Frazier, RN) Datetime: 06/24/2016 00:32 I/O Interventions: Up to BR (Chanel Frazier, RN) Datetime: 06/24/2016 00:30 Stage of : Antepartum (Chanel Frazier, RN) Monitor Mode: External; Palpation (Chanel Frazier, RN) Frequency (min): 3-5 (Chanel Frazier, RN) Quality: Mild (Chanel Frazier, RN) Duration (sec): 60-90 (Chanel Frazier, RN) Pattern: Normal: <= 5 Contractions in 10 Minutes (Chanel Frazier, RN) Resting Tone (Palpate): Relaxed (Chanel Frazier, RN) Monitor Mode: External US (Chanel Frazier, RN) Monitor Interventions for FHR: Ultrasound Adjusted (Chanel Frazier, RN) FHR Baseline Rate : 130 (Chanel Frazier, RN) FHR Baseline Changes: No Baseline Change (Chanel Frazier, RN) Variability: Moderate 6-25 bpm (Chanel Frazier, RN) Accelerations: 15X15 (Chanel Frazier, RN) Comments: UTD if decels present during broken tracing (Chanel Frazier, RN) Communication: RN at Bedside; RN Reviewed Strip (Chanel Frazier, RN) Datetime: 06/24/2016 00:21 Monitor Interventions for FHR: Ultrasound Adjusted (Chanel Frazier, RN) Datetime: 06/24/2016 00:14 Comments: RN at bedside adjusting US (Chanel Frazier, RN) Datetime: 06/24/2016 00:03 NBP Sys/Vilma/Mean (mmHg): 110 (QS system process) : 60 (QS system process) : 78 (QS system process) Pulse: 90 (QS system process) LaborFlag: Antepartum (QS system process) Datetime: 06/24/2016 00:00 Stage of : Antepartum (Chanel Frazier, RN) Monitor Mode: External (Chanel Frazier, RN) Frequency (min): 2-4 (Chanel Frazier, RN) Quality: Mild (Chanel Frazier, RN) Duration (sec): 60-80 (Chanel Frazier, RN) Pattern: Normal: <= 5 Contractions in 10 Minutes (Chanel Frazier, RN) Resting Tone (Palpate): Relaxed (Chanel Frazier, RN) Monitor Mode: External US (Chanel Frazier, RN) FHR Baseline Rate : 140 (Chanel Frazeir, RN) FHR Baseline Changes: No Baseline Change (Chanel Frazier, RN) Variability: Moderate 6-25 bpm (Chanel Frazier, RN) Accelerations: 15X15 (Chanel Frazier, RN) Communication: RN at Bedside; RN Reviewed Strip (Chanel Frazier, RN) Datetime: 06/23/2016 23:41 Monitor Interventions for FHR: Ultrasound Adjusted (Rucsandra Qasim, RN) Datetime: 06/23/2016 23:40 Maternal Comments: Pt sitting up in bed, maternal heart rate palpated and tracing. RN to adjust monitor (Rucsandra Qasim, RN) Datetime: 06/23/2016 23:35 NBP Sys/Vilma/Mean (mmHg): 126 (QS system process) : 71 (QS system process) : 92 (QS system process) Pulse: 100 (QS system process) LaborFlag: Antepartum (QS system process) Datetime: 06/23/2016 23:30 Monitor Mode: External; Palpation (Rucsandra Qasim, RN) Frequency (min): irregular (Rucsandra Qasim, RN) Quality: Mild/Moderate (Rucsandra Qasim, RN) Duration (sec): 60-90 (Rucsandra Qasim, RN) Resting Tone (Palpate): Relaxed (Rucsandra Qasim, RN) Monitor Mode: External US (Rucsandra Qasim, RN) FHR Baseline Rate : 130 (Rucsandra Qasim, RN) Variability: Moderate 6-25 bpm (Rucsandra Qasim, RN) Accelerations: 15X15 (Rucsandra Qasim, RN) Decelerations: None (Rucsandra Qasim, RN) Datetime: 06/23/2016 23:28 I/O Interventions: Up to BR (Rujose carlos Tripp, RN) Datetime: 06/23/2016 23:04 NBP Sys/Vilma/Mean (mmHg): 109 (QS system process) : 60 (QS system process) : 78 (QS system process) Pulse: 98 (QS system process) LaborFlag: Antepartum (QS system process) Datetime: 06/23/2016 23:00 Monitor Mode: External; Palpation (Jani Tripp, RN) Frequency (min): irregular (Jani Tripp, RN) Quality: Mild/Moderate (Rucsave Tripp, RN) Duration (sec): 40-60 (Rujose carlos Tripp, RN) Resting Tone (Palpate): Relaxed (Rucsandra Qasim, RN) Monitor Mode: External US (Rucsandra Qasim, RN) FHR Baseline Rate : 135 (Rucsandra Qasim, RN) Variability: Moderate 6-25 bpm (Rucsandra Qasim, RN) Accelerations: 15X15 (Rucsandra Qasim, RN) Decelerations: None (Rucsandra Qasim, RN) Datetime: 06/23/2016 22:34 NBP Sys/Vilma/Mean (mmHg): 120 (QS system process) : 57 (QS system process) : 79 (QS system process) Pulse: 105 (QS system process) LaborFlag: Antepartum (QS system process) Datetime: 06/23/2016 22:30 Monitor Mode: External; Palpation (Rucsandra Qasim, RN) Frequency (min): none (Rucsandra Qasim, RN) Resting Tone (Palpate): Relaxed (Rucsandra Qasim, RN) Monitor Mode: External US (Rucsandra Qasim, RN) FHR Baseline Rate : 130 (Rucsandra Qasim, RN) Variability: Moderate 6-25 bpm (Rucsave Tripp, RN) Accelerations: 15X15 (Rucsandra Tripp, RN) Decelerations: None (Rucsandra Qasim, RN) Datetime: 06/23/2016 22:03 NBP Sys/Vilma/Mean (mmHg): 118 (QS system process) : 65 (QS system process) : 87 (QS system process) Pulse: 87 (QS system process) LaborFlag: Antepartum (QS system process) Datetime: 06/23/2016 22:00 Monitor Mode: External; Palpation (Jani Tripp, RN) Frequency (min): x1 (Jani Tripp, RN) Quality: Mild (Rucsandra Tripp, RN) Duration (sec): 80 (Rucsave Tripp, RN) Resting Tone (Palpate): Relaxed (Jani Tripp, RN) Monitor Mode: External US (Jani Tripp, RN) FHR Baseline Rate : 130 (Rujose carlos Tripp, RN) Variability: Moderate 6-25 bpm (Rucsandra Qasim, RN) Accelerations: 15X15 (Jani Tripp RN) Decelerations: None (Jani Tripp RN)
[2016-06-24] MEDS ORDERED: ACETAMINOPHEN 325 MG TABLET ONE (08:49)
--- NOTE | 2016-06-24 09:25 | L&D Progress Notes ---
PROGRESS NOTES Datetime Report Generated by CPN: 06/24/2016 09:25 PROGRESS NOTE Impression: Normal Progression of Labor Plan: Augmentation Informed Consent Obtained: Vaginal Delivery; Risks, Benefits and Alternatives Discussed Vital Signs : Reviewed Comment: 25 yo admitted for GHTN cervidil the night before EDC 07/07/16 history of asthma, pih, abdomen nontender cervix /-2 fhts reactive GHTN ASTHMA pt uncomfortable with exam difficult to rupture despite being favorable plan of care reviewed with pt and spouse VAGINAL EXAM Dilatation: 3 Effacement: 50 Station: -2 FETUS A Monitoring: External US Variability: Moderate 6-25bpm Accelerations: 15X15 FHR Category: Category I FETUS C SIGNATURE: [id number] Assignment: Crystal Jimenez MD Signature: with User ID: Rosalina : with User ID: Rosalina
--- NOTE | 2016-06-24 10:00 | L&D Flow Sheet ---
LD Flowsheet Datetime Report Generated by CPN: 06/24/2016 10:00 Datetime: 06/24/2016 09:56 NBP Sys/Vilma/Mean (mmHg): 130 (QS system process) : 84 (QS system process) : 102 (QS system process) Pulse: 93 (QS system process) LaborFlag: Antepartum (QS system process) Datetime: 06/24/2016 09:50 Pitocin (milliunit): Pitocin Increased to (milliunits) @ 14 (Lyssa Amaury, RN) Datetime: 06/24/2016 09:27 NBP Sys/Vilma/Mean (mmHg): 132 (QS system process) : 85 (QS system process) : 102 (QS system process) Pulse: 89 (QS system process) LaborFlag: Antepartum (QS system process) Datetime: 06/24/2016 09:21 Pitocin (milliunit): Pitocin Increased to (milliunits) @ 12 (Lyssa Amaury, RN) Datetime: 06/24/2016 08:57 Medication Comments: 650mg Tylenol PO (Lyssa Amaury, RN) Datetime: 06/24/2016 08:42 Dilatation (cm): 3.0 (Lyssa Amaury, RN) Effacement (%): 50 (Lyssa Amaury, RN) Station: -2 (Lyssa Amaury, RN) Exam by: A. Emmel CNM (Lyssa Amaury, RN) Datetime: 06/24/2016 08:39 Pitocin (milliunit): Pitocin Increased to (milliunits) @ 10 (Lyssa Amaury, RN) Datetime: 06/24/2016 08:26 NBP Sys/Vilma/Mean (mmHg): 113 (QS system process) : 60 (QS system process) : 75 (QS system process) Pulse: 84 (QS system process) LaborFlag: Antepartum (QS system process) Datetime: 06/24/2016 08:25 Pitocin (milliunit): Pitocin Increased to (milliunits) @ 8 (Lyssa Rebolledo RN)
--- NOTE | 2016-06-24 12:00 | L&D Flow Sheet ---
LD Flowsheet Datetime Report Generated by CPN: 06/24/2016 12:00 Datetime: 06/24/2016 11:37 I/O Interventions: Up to BR (Lyssa Amaury, RN) Datetime: 06/24/2016 11:30 Monitor Mode: External (Lyssa Amaury, RN) Frequency (min): 3-5 (Lyssa Amaury, RN) Quality: Moderate to Strong (Lyssa Amaury, RN) Duration (sec): 60-90 (Lyssa Amaury, RN) Resting Tone (Palpate): Relaxed (Lyssa Amaury, RN) Monitor Mode: External US (Lyssa Amaury, RN) FHR Baseline Rate : 145 (Lyssa Amaury, RN) Variability: Moderate 6-25 bpm (Lyssa Amaury, RN) Accelerations: 15X15 (Lyssa Amaury, RN) Decelerations: None (Lyssa Amaury, RN) Datetime: 06/24/2016 11:29 Patient Care Comments: pt on all fours in the bed leaning over peanut ball (Lyssa Blandonmes, RN) Communication: RN at Bedside (Lyssa Amaury, RN) Datetime: 06/24/2016 11:28 Dilatation (cm): 6.5 (Lyssa Amaury, RN) Effacement (%): 90 (Lyssa Amaury, RN) Station: -1 (Lyssa Amaury, RN) Exam by: Magalis Rebolledo RN (Lyssa Amaury, RN) Datetime: 06/24/2016 11:26 NBP Sys/Vilma/Mean (mmHg): 143 (QS system process) : 91 (QS system process) : 109 (QS system process) Pulse: 96 (QS system process) LaborFlag: Antepartum (QS system process) Datetime: 06/24/2016 11:15 Monitor Mode: External; Palpation (Lyssa Amaury, RN) Frequency (min): 1-3 (Lyssa Amaury, RN) Quality: Moderate to Strong (Lyssa Amaury, RN) Duration (sec): 60-90 (Lyssa Amaury, RN) Resting Tone (Palpate): Relaxed (Lyssa Amaury, RN) Monitor Mode: External US (Lyssa Amaury, RN) FHR Baseline Rate : 145 (Lyssa Amaury, RN) Variability: Moderate 6-25 bpm (Lyssa Amaury, RN) Accelerations: 15X15 (Lyssa Amaury, RN) Decelerations: None (Lyssa Amaury, RN) Datetime: 06/24/2016 11:00 Monitor Mode: External (Lyssa Amaury, RN) Frequency (min): 2-3 (Lyssa Amaury, RN) Quality: Moderate (Lyssa Amaury, RN) Duration (sec): 60-90 (Lyssa Amaury, RN) Resting Tone (Palpate): Relaxed (Lyssa Amaury, RN) Monitor Mode: External US (Lyssa Amaury, RN) FHR Baseline Rate : 145 (Lyssa Amaury, RN) Variability: Moderate 6-25 bpm (Lyssa Amaury, RN) Accelerations: 15X15 (Lyssa Amaury, RN) Decelerations: None (Lyssa Amaury, RN) Datetime: 06/24/2016 10:56 NBP Sys/Vilma/Mean (mmHg): 140 (QS system process) : 91 (QS system process) : 107 (QS system process) Pulse: 98 (QS system process) LaborFlag: Antepartum (QS system process) Datetime: 06/24/2016 10:45 Monitor Mode: External; Palpation (Lyssa Amaury, RN) Frequency (min): 2-3 (Lyssa Amaury, RN) Quality: Moderate (Lyssa Amaury, RN) Duration (sec): 60-90 (Lyssa Amaury, RN) Resting Tone (Palpate): Relaxed (Lyssa Amaury, RN) Monitor Mode: External US (Lyssa Amaury, RN) FHR Baseline Rate : 145 (Lyssa Amaury, RN) Variability: Moderate 6-25 bpm (Lyssa Amaury, RN) Accelerations: 15X15 (Lyssa Amaury, RN) Decelerations: None (Lyssa Amaury, RN) Datetime: 06/24/2016 10:43 Temperature (F): 98.0 (Lyssa Amaury, RN) Temperature (C): 36.7 (QS system process) LaborFlag: Antepartum (QS system process) Datetime: 06/24/2016 10:30 Monitor Mode: External (Lyssa Amaury, RN) Frequency (min): 3-5 (Lyssa Amaury, RN) Quality: Moderate (Lyssa Amaury, RN) Duration (sec): 70-90 (Lyssa Amaury, RN) Resting Tone (Palpate): Relaxed (Lyssa Amaury, RN) Monitor Mode: External US (Lyssa Amaury, RN) FHR Baseline Rate : 145 (Lyssa Amaury, RN) Variability: Moderate 6-25 bpm (Lyssa Amaury, RN) Accelerations: 15X15 (Lyssa Amaury, RN) Decelerations: None (Lyssa Amaury, RN) Datetime: 06/24/2016 10:27 NBP Sys/Vilma/Mean (mmHg): 132 (QS system process) : 74 (QS system process) : 96 (QS system process) Pulse: 91 (QS system process) LaborFlag: Antepartum (QS system process) Datetime: 06/24/2016 10:26 Pitocin (milliunit): Pitocin Increased to (milliunits) @ 16 (Lyssa Rebolledo, RN) Datetime: 06/24/2016 10:24 Pain Scale: 3 (Lyssa Rebolledo RN) Pain Presence: Intermittent (Lyssa Rebolledo RN) Pain Type: Contraction (Lyssa Rebolledo RN) Pain Location: Abdomen (Lyssa Rebolledo, RN) Pain Relief Measures: Comfort Measures (Lyssa Rebolledo RN) Pain Coping: Declines Medication or Epidural (Lyssa Rebolledo RN) Comfort Measures: Breathing/Relaxation; Rocking Chair; Family Support (Lyssa Rebolledo RN) LaborFlag: Antepartum (QS system process) Datetime: 06/24/2016 10:15 Monitor Mode: External (Lyssa Rebolledo, RN) Frequency (min): 2-4 (Lyssa Rebolledo, RN) Quality: Moderate (Lyssa Amaury, RN) Duration (sec): 60-90 (Lyssa Blandonmes, RN) Resting Tone (Palpate): Relaxed (Lyssa Rebolledo, RN) Monitor Mode: External US (Lyssa Rebolledo, RN) FHR Baseline Rate : 145 (Lyssa Amaury, RN) Variability: Moderate 6-25 bpm (Lyssa Amaury, RN) Accelerations: 15X15 (Lyssa Amaury, RN) Decelerations: None (Lyssa Amaury, RN) Datetime: 06/24/2016 10:00 Monitor Mode: External (Lyssa Amaury, RN) Frequency (min): 2-3 (Lyssa Amaury, RN) Quality: Moderate (Lyssa Amaury, RN) Duration (sec): 60-90 (Lyssa Amaury, RN) Resting Tone (Palpate): Relaxed (Lyssa Amaury, RN) Monitor Mode: External US (Lyssa Amaury, RN) FHR Baseline Rate : 145 (Lsysa Amaury, RN) Variability: Moderate 6-25 bpm (Lyssa Amaury, RN) Accelerations: 15X15 (Lyssa Amaury, RN) Decelerations: None (Lyssa Amaury, RN)
[2016-06-24] MEDS ORDERED: MISOPROSTOL 0.2 MG TABLET ONE (12:22)
[2016-06-24] MEDS ORDERED: LIDOCAINE 1% INJ-PF (10 MG/ML) 30 ML SDV ONE (12:22)
[2016-06-24] MEDS ORDERED: PROMETHAZINE HCL INJ 25 MG/1 ML VIAL ONE (12:27)
[2016-06-24] MEDS ORDERED: NALBUPHINE HCL INJ 10 MG/1 ML AMPULE ONE (12:27)
--- NOTE | 2016-06-24 14:00 | L&D Flow Sheet ---
LD Flowsheet Datetime Report Generated by CPN: 06/24/2016 14:00 Datetime: 06/24/2016 13:53 Procedure Verify: Correct Patient Identity (Lyssa Rebolledo, RN) Anesthesia Plans: Epidural (Lyssa Rebolledo, RN) Anesthesia Comments: new bag of LR hung (Lyssa Rebolledo, RN) Datetime: 06/24/2016 13:46 Communication: RN at Bedside (Lyssa Rebolledo, RN) Datetime: 06/24/2016 13:35 Dilatation (cm): 6.0 (Lyssa Amaury, RN) Effacement (%): 80 (Lyssa Amaury, RN) Station: -1 (Lyssa Amaury, RN) Exam by: AKelby Rebolledo RN (Lyssa Amaury, RN) Vaginal Exam Comments: pt stating she feels like she needs to push (Lyssa Amaury, RN) Datetime: 06/24/2016 13:32 Communication: RN at Bedside (Lyssa Amaury, RN) Datetime: 06/24/2016 13:15 Pitocin (milliunit): Pitocin Increased to (milliunits) @ 20 (Lyssa Amaury, RN) Datetime: 06/24/2016 13:05 NBP Sys/Vilma/Mean (mmHg): 123 (QS system process) : 71 (QS system process) : 91 (QS system process) Pulse: 88 (QS system process) LaborFlag: Antepartum (QS system process) Datetime: 06/24/2016 12:45 Pitocin (milliunit): Pitocin Increased to (milliunits) @ 18 (Lyssa Amaury, RN) Datetime: 06/24/2016 12:32 Medication Comments: 10mg Nubain IV 12.5mg Phenergan IV (Lyssa Amaury, RN) Datetime: 06/24/2016 12:22 Dilatation (cm): 6.0 (Lyssa Amaury, RN) Effacement (%): 80 (Lyssa Amaury, RN) Station: -1 (Lyssa Amaury, RN) Exam by: A. Emmel CNM (Lyssa Amaury, RN) Datetime: 06/24/2016 12:13 Communication: RN at Bedside (Lyssa Amaury, RN) Datetime: 06/24/2016 12:12 Patient Care Comments: pt on all fours, kneeling over bed (Lyssa Rebolledo RN)
[2016-06-24] MEDS ORDERED: IBUPROFEN 800 MG TABLET ONE (14:37)
[2016-06-24] MEDS ORDERED: OXYTOCIN/NORMAL SALINE 20 UNIT/1,000 ML RTUINJ ONE (14:37)
--- NOTE | 2016-06-24 16:00 | L&D Flow Sheet ---
LD Flowsheet Datetime Report Generated by CPN: 06/24/2016 16:00 Datetime: 06/24/2016 15:54 NBP Sys/Vilma/Mean (mmHg): 123 (QS system process) : 67 (QS system process) : 87 (QS system process) Pulse: 103 (QS system process) LaborFlag: Antepartum (QS system process) Datetime: 06/24/2016 15:45 Respirations: 16 (Lyssa Amaury, RN) Pain Scale: 0 (Lyssa Amaury, RN) Pain Presence: None/Denies (Lyssa Amaury, RN) Pain Type: N/A (Lyssa Amaury, RN) LaborFlag: Antepartum (QS system process) Datetime: 06/24/2016 15:39 NBP Sys/Vilma/Mean (mmHg): 121 (QS system process) : 73 (QS system process) : 93 (QS system process) Pulse: 93 (QS system process) LaborFlag: Antepartum (QS system process) Datetime: 06/24/2016 15:30 Respirations: 16 (Lyssa Amaury, RN) Pain Scale: 0 (Lyssa Amaury, RN) Pain Presence: None/Denies (Lyssa Amaury, RN) Pain Type: N/A (Lyssa Amaury, RN) LaborFlag: Antepartum (QS system process) Datetime: 06/24/2016 15:24 NBP Sys/Vilma/Mean (mmHg): 133 (QS system process) : 86 (QS system process) : 104 (QS system process) Pulse: 103 (QS system process) LaborFlag: Antepartum (QS system process) Datetime: 06/24/2016 15:15 Respirations: 16 (Lyssa Amaury, RN) Pain Scale: 0 (Lyssa Amaury, RN) Pain Presence: None/Denies (Lyssa Amaury, RN) Pain Type: N/A (Lyssa Amaury, RN) LaborFlag: Antepartum (QS system process) Datetime: 06/24/2016 15:09 NBP Sys/Vilma/Mean (mmHg): 133 (QS system process) : 88 (QS system process) : 106 (QS system process) Pulse: 101 (QS system process) LaborFlag: Antepartum (QS system process) Datetime: 06/24/2016 15:00 Respirations: 17 (Lyssa Amaury, RN) Pain Scale: 1 (Lyssa Amaury, RN) Pain Presence: Intermittent (Lyssa Amaury, RN) Pain Type: Burning (Lyssa Amaury, RN) Pain Location: Perineum (Lyssa Amaury, RN) Pain Relief Measures: Comfort Measures (Lyssa Amaury, RN) LaborFlag: Antepartum (QS system process) Datetime: 06/24/2016 14:54 NBP Sys/Vilma/Mean (mmHg): 132 (QS system process) : 75 (QS system process) : 98 (QS system process) Pulse: 94 (QS system process) LaborFlag: Antepartum (QS system process) Datetime: 06/24/2016 14:45 Respirations: 16 (Lyssa Amaury, RN) Pain Scale: 2 (Lyssa Amaury, RN) Pain Presence: Constant (Lyssa Amaury, RN) Pain Type: Burning (Lyssa Amaury, RN) Pain Location: Perineum (Lyssa Amaury, RN) Pain Relief Measures: Comfort Measures (Lyssa Amaury, RN) LaborFlag: Antepartum (QS system process) Datetime: 06/24/2016 14:39 NBP Sys/Vilma/Mean (mmHg): 131 (QS system process) : 86 (QS system process) : 99 (QS system process) Pulse: 105 (QS system process) LaborFlag: Antepartum (QS system process) Datetime: 06/24/2016 14:30 Respirations: 17 (Lyssa Amaury, RN) Pain Scale: 3 (Lyssa Amaury, RN) Pain Presence: Constant (Lyssa Amaury, RN) Pain Type: Burning (Lyssa Amaury, RN) Pain Location: Perineum (Lyssa Amaury, RN) Pain Relief Measures: Comfort Measures (Lyssa Amaury, RN) LaborFlag: Antepartum (QS system process) Datetime: 06/24/2016 14:24 NBP Sys/Vilma/Mean (mmHg): 120 (QS system process) : 76 (QS system process) : 89 (QS system process) Pulse: 100 (QS system process) LaborFlag: Antepartum (QS system process) Datetime: 06/24/2016 14:15 Respirations: 16 (Lyssa Amaury, RN) Pain Scale: 3 (Lyssa Amaury, RN) Pain Presence: Constant (Lyssa Amaury, RN) Pain Type: Burning (Lyssa Amaury, RN) Pain Location: Perineum (Lyssa Amaury, RN) Pain Relief Measures: Comfort Measures (Lyssa Amaury, RN) LaborFlag: Antepartum (QS system process) Datetime: 06/24/2016 14:04 Dilatation (cm): 10.0 (Lyssa Amaury, RN) Effacement (%): 100 (Lyssa Amaury, RN) Station: 2 (Lyssa Amaury, RN) Exam by: A. Emmel CNM (Lyssa Amaury, RN) Communication Comments: pt on all fours on bed, yelling (Lyssa Amaury, RN) Datetime: 06/24/2016 14:03 Communication Comments: RN and CNM at bedside while pt pushing and assessing FHTs (Lyssa Amaury, RN) Datetime: 06/24/2016 14:00 Monitor Mode: External (Lyssa Amaury, RN) Frequency (min): 2-3 (Lyssa Amaury, RN) Quality: Moderate to Strong (Lyssa Amaury, RN) Duration (sec): 60-90 (Lyssa Amaury, RN) Resting Tone (Palpate): Relaxed (Lyssa Amaury, RN) Monitor Mode: External US (Lyssa Amaury, RN) FHR Baseline Rate : 145 (Lyssa Amaury, RN) Variability: Moderate 6-25 bpm (Lyssa Amaury, RN) Accelerations: None (Lyssa Amaury, RN) Decelerations: Variable (Lyssa Amaury, RN)
[2016-06-24] MEDS ORDERED: OXYTOCIN/NORMAL SALINE 1,000 ML IV PRN (16:40)
[2016-06-24] MEDS ORDERED: MEASLES,MUMPS&RUBELLA VACC/PF 0.5 ML VIAL SUBCUT PRN (16:40)
[2016-06-24] MEDS ORDERED: BENZOCAINE/MENTHOL AEROSOL SPRAY 56 ML TOP PRN (16:40)
[2016-06-24] MEDS ORDERED: ZOLPIDEM TARTRATE 5 MG TABLET PO PRN (16:40)
[2016-06-24] MEDS ORDERED: DIPH/PERTUSS(ACELL)/TETANUS VAC/PF 0.5 ML SYR (>=10YO) IM PRN (16:40)
[2016-06-24] MEDS ORDERED: DIBUCAINE 1% OINTMENT 28 GM TP PRN (16:40)
--- NOTE | 2016-06-24 16:40 | Admission Physical ---
Datetime Report Generated by CPN: 06/24/2016 16:39 CURRENT ADMISSION Chief Complaint: Scheduled Induction of Labor Indication for Induction: Gest. HTN/PreEclampsia/Eclampsia Admit Plan: Admit to Unit; Initiate Labor Induction Protocol ALLERGIES Medication Allergies: Yes Medication Allergies: cholecalciferol (vitamin D3)/Hives (06/23/2016); Bee Sting Kit (06/23/2016); Calcium Citrate * (06/23/2016); metoclopramide/Tachycardia (06/23/2016) Latex: No Latex Allergies Environmental Allergies: Bees OBSTETRICAL HISTORY EDC: 07/07/2016 00:00 : 4 Para: 3 Term: 3 : 0 SAB: 0 IAB: 0 Ectopic: 0 Livin Cesareans: 0 VBACs: 0 Multiple Births: 0 Gestational Diabetes: No Rh Sensitization: No Incompetent Cervix: No LAURA: No Infertility: No ART Treatment: No Uterine Anomaly: No IUGR: No Hx Previous C/S: No Macrosomia: No Hx Loss/Stillborn: No PIH: Yes Hx : No Placenta Previa/Abruption: No Depression/PP Depression: No PTL/PROM: No Post Hemorrhage: No Current Procedures: Ultrasound; NST SEE RECORDS Alcohol: No Marijuana : No Cocaine: No Other Illicit Drugs: No Cigarettes: Current Everyday Smoker. [id number] Cigarette Frequency: 5 - 10 per day Advised to Stop: Yes MEDICAL HISTORY Diabetes: No Blood Transfusion: No Pulmonary Disease (Asthma, TB): Yes Breast Disease: No Hypertension: No Land Clearer Surgery: No Heart Disease: No Hosp/Surgery: Yes Autoimmune Disorder: No Anesthetic Complications: Yes Kidney Disease: No Abnormal Pap Smear: No Neuro/Epilepsy: No Psychiatric Disorders: No Other Medical Diseases: No Hepatitis/Liver Disease: No Significant Family History: No Varicosities/Phlebitis: No Trauma/Violence : No Thyroid Dysfunction: No Medical History Comments: CHILDBIRTH Numbness for two months post epidural INFECTIOUS HISTORY Gonorrhea: No Genital Herpes: No Chlamydia: No Tuberculosis: No Syphilis: No Hepatitis: No HIV/AIDS Exposure: No Rash or Viral Illness: No HPV: No PHYSICAL EXAM General: Normal HEENT: Normal Neurologic: Normal Thyroid: Deferred Heart: Normal Lungs: Normal Breast: Deferred Back: Normal Abdomen: Normal Genitourinary Exam: Normal Extremities: Normal DTRs: Normal Pelvic Type: Adequate Physical Exam Comments: Gravid uterus Vital Signs: Reviewed; Within Normal Limits VAGINAL EXAM Dilatation: 6 Effacement: 90 Station: -1 MEMBRANES Membranes: Ruptured FETUS A EGA: 38.0 Monitoring: External US FHR- Baseline: 135 Variability: Moderate 6-25bpm Accelerations: 15X15 FHR Category: Category I Presentation: Vertex Admit Comment: IOL for Gestational HTN Proven for 6lbs 14oz Hx asthma Hx smoker Will admit and began IOL with Pitocin PLANS FOR LABOR AND DELIVERY Labor and Delivery: None Pain Management: Medications Feeding Preference: Breast Benefit of Breast Feed Discussed: Yes Circumcision: N/A INFORMED CONSENT Informed Consent Obtained: Vaginal Delivery; Risks, Benefits and Alternatives Discussed Assignment: Lily Louis MD Signature: with User ID: [email or web address] : with User ID: [email or web address] : I personally evaluated and examined the patient in conjunction with the MLP and agree with the assessment, treatment plan and disposition.
[2016-06-24] MEDS ORDERED: INFLUENZA ADLT QUAD (36MOS+) 2016-17 VAC 0.5 ML SYR IM PRN (16:56)
[2016-06-24] MEDS: DOCUSATE SODIUM 100 MG CAPSULE PO SCH (17:35)
[2016-06-24] MEDS: FERROUS SULFATE 325 MG TABLET PO SCH (17:35)
--- NOTE | 2016-06-24 18:00 | L&D Flow Sheet ---
LD Flowsheet Datetime Report Generated by CPN: 06/24/2016 18:00 Datetime: 06/24/2016 16:35 Respirations: 16 (Lyssa Amaury, RN) Pain Scale: 0 (Lyssa Amaury, RN) Pain Presence: None/Denies (Lyssa Amaury, RN) Pain Type: N/A (Lyssa Amaury, RN) LaborFlag: Antepartum (QS system process) Datetime: 06/24/2016 16:15 Respirations: 16 (Lyssa Amaury, RN) Temperature (F): 98.0 (Lyssa Rebolledo RN) Temperature (C): 36.7 (QS system process) Pain Scale: 0 (Lyssa Rebolledo RN) Pain Presence: None/Denies (Lyssa Rebolledo RN) Pain Type: N/A (Lyssa Rebolledo RN) LaborFlag: Antepartum (QS system process) Datetime: 06/24/2016 16:09 NBP Sys/Vilma/Mean (mmHg): 116 (QS system process) : 61 (QS system process) : 80 (QS system process) Pulse: 96 (QS system process) LaborFlag: Antepartum (QS system process)
--- NOTE | 2016-06-24 19:00 | L&D Flow Sheet ---
LD Flowsheet Datetime Report Generated by CPN: 06/24/2016 19:00 Datetime: 06/24/2016 16:35 Respirations: 16 (Lyssa Amaury, RN) Pain Scale: 0 (Lyssa Amaury, RN) Pain Presence: None/Denies (Lyssa Amaury, RN) Pain Type: N/A (Lyssa Amaury, RN) LaborFlag: Antepartum (QS system process) Datetime: 06/24/2016 16:15 Respirations: 16 (Lyssa Amaury, RN) Temperature (F): 98.0 (Lyssa Amaury, RN) Temperature (C): 36.7 (QS system process) Pain Scale: 0 (Lyssa Rebolledo, RN) Pain Presence: None/Denies (Lyssa Amaury, RN) Pain Type: N/A (Lyssa Amaury, RN) LaborFlag: Antepartum (QS system process) Datetime: 06/24/2016 16:09 NBP Sys/Vilma/Mean (mmHg): 116 (QS system process) : 61 (QS system process) : 80 (QS system process) Pulse: 96 (QS system process) LaborFlag: Antepartum (QS system process) Datetime: 06/24/2016 15:54 NBP Sys/Vilma/Mean (mmHg): 123 (QS system process) : 67 (QS system process) : 87 (QS system process) Pulse: 103 (QS system process) LaborFlag: Antepartum (QS system process) Datetime: 06/24/2016 15:45 Respirations: 16 (Lyssa Amaury, RN) Pain Scale: 0 (Lyssa Amaury, RN) Pain Presence: None/Denies (Lyssa Amaury, RN) Pain Type: N/A (Lyssa Amaury, RN) LaborFlag: Antepartum (QS system process) Datetime: 06/24/2016 15:39 NBP Sys/Vilma/Mean (mmHg): 121 (QS system process) : 73 (QS system process) : 93 (QS system process) Pulse: 93 (QS system process) LaborFlag: Antepartum (QS system process) Datetime: 06/24/2016 15:30 Respirations: 16 (Lyssa Amaury, RN) Pain Scale: 0 (Lyssa Amaury, RN) Pain Presence: None/Denies (Lyssa Amaury, RN) Pain Type: N/A (Lyssa Amaury, RN) LaborFlag: Antepartum (QS system process) Datetime: 06/24/2016 15:24 NBP Sys/Vilma/Mean (mmHg): 133 (QS system process) : 86 (QS system process) : 104 (QS system process) Pulse: 103 (QS system process) LaborFlag: Antepartum (QS system process) Datetime: 06/24/2016 15:15 Respirations: 16 (Lyssa Amaury, RN) Pain Scale: 0 (Lyssa Amaury, RN) Pain Presence: None/Denies (Lyssa Amaury, RN) Pain Type: N/A (Lyssa Amaury, RN) LaborFlag: Antepartum (QS system process) Datetime: 06/24/2016 15:09 NBP Sys/Vilma/Mean (mmHg): 133 (QS system process) : 88 (QS system process) : 106 (QS system process) Pulse: 101 (QS system process) LaborFlag: Antepartum (QS system process) Datetime: 06/24/2016 15:00 Respirations: 17 (Lyssa Rebolledo, RN) Pain Scale: 1 (Lyssa Rebolledo, RN) Pain Presence: Intermittent (Lyssa Rebolledo, RN) Pain Type: Burning (Lyssa Rebolledo, RN) Pain Location: Perineum (Lyssa Rebolledo, RN) Pain Relief Measures: Comfort Measures (Lyssa Rebolledo, RN) LaborFlag: Antepartum (QS system process) Datetime: 06/24/2016 14:54 NBP Sys/Vilma/Mean (mmHg): 132 (QS system process) : 75 (QS system process) : 98 (QS system process) Pulse: 94 (QS system process) LaborFlag: Antepartum (QS system process) Datetime: 06/24/2016 14:45 Respirations: 16 (Lyssa Amaury, RN) Pain Scale: 2 (Lyssa Amaury, RN) Pain Presence: Constant (Lyssa Amaury, RN) Pain Type: Burning (Lyssa Amaury, RN) Pain Location: Perineum (Lyssa Amaury, RN) Pain Relief Measures: Comfort Measures (Lyssa Amaury, RN) LaborFlag: Antepartum (QS system process) Datetime: 06/24/2016 14:39 NBP Sys/Vimla/Mean (mmHg): 131 (QS system process) : 86 (QS system process) : 99 (QS system process) Pulse: 105 (QS system process) LaborFlag: Antepartum (QS system process) Datetime: 06/24/2016 14:30 Respirations: 17 (Lyssa Amaury, RN) Pain Scale: 3 (Lyssa Amaury, RN) Pain Presence: Constant (Lyssa Amaury, RN) Pain Type: Burning (Lyssa Amaury, RN) Pain Location: Perineum (Lyssa Amaury, RN) Pain Relief Measures: Comfort Measures (Lyssa Amaury, RN) LaborFlag: Antepartum (QS system process) Datetime: 06/24/2016 14:24 NBP Sys/Vilma/Mean (mmHg): 120 (QS system process) : 76 (QS system process) : 89 (QS system process) Pulse: 100 (QS system process) LaborFlag: Antepartum (QS system process) Datetime: 06/24/2016 14:15 Respirations: 16 (Lyssa Amaury, RN) Pain Scale: 3 (Lyssa Amaury, RN) Pain Presence: Constant (Lyssa Amaury, RN) Pain Type: Burning (Lyssa Amaury, RN) Pain Location: Perineum (Lyssa Amaury, RN) Pain Relief Measures: Comfort Measures (Lyssa Amaury, RN) LaborFlag: Antepartum (QS system process) Datetime: 06/24/2016 14:04 Dilatation (cm): 10.0 (Lyssa Rebolledo, RN) Effacement (%): 100 (Lyssa Rebolledo, RN) Station: 2 (Lyssa Rebolledo, RN) Exam by: Magalis Conrad CNDemetrio (Lyssa Rebolledo, RN) Communication Comments: pt on all fours on bed, yelling (Lyssa Rebolledo, RN) Datetime: 06/24/2016 14:03 Communication Comments: RN and CNM at bedside while pt pushing and assessing FHTs (Lyssa Amaury, RN) Datetime: 06/24/2016 14:00 Monitor Mode: External (Lyssa Amaury, RN) Frequency (min): 2-3 (Lyssa Amaury, RN) Quality: Moderate to Strong (Lyssa Amaury, RN) Duration (sec): 60-90 (Lyssa Amaury, RN) Resting Tone (Palpate): Relaxed (Lyssa Amaury, RN) Monitor Mode: External US (Lyssa Amaury, RN) FHR Baseline Rate : 145 (Lyssa Amaury, RN) Variability: Moderate 6-25 bpm (Lyssa Amaury, RN) Accelerations: None (Lyssa Amaury, RN) Decelerations: Variable (Lyssa Amaury, RN) Datetime: 06/24/2016 13:53 Procedure Verify: Correct Patient Identity (Lyssa Amaury, RN) Anesthesia Plans: Epidural (Lyssa Amaury, RN) Anesthesia Comments: new bag of LR hung (Lyssa Amaury, RN) Datetime: 06/24/2016 13:46 Communication: RN at Bedside (Lyssa Amaury, RN) Datetime: 06/24/2016 13:45 Monitor Mode: External; Palpation (Lyssa Amaury, RN) Frequency (min): 2-3 (Lyssa Amaury, RN) Quality: Moderate to Strong (Lyssa Amaury, RN) Duration (sec): 60-90 (Lyssa Amaury, RN) Resting Tone (Palpate): Relaxed (Lyssa Amaury, RN) Monitor Mode: External US (Lyssa Amaury, RN) FHR Baseline Rate : 140 (Lyssa Amaury, RN) Variability: Moderate 6-25 bpm (Lyssa Amaury, RN) Accelerations: None (Lyssa Amaury, RN) Decelerations: Late (Lyssa Amaury, RN) Datetime: 06/24/2016 13:35 Dilatation (cm): 6.0 (Lyssa Amaury, RN) Effacement (%): 80 (Lyssa Amaury, RN) Station: -1 (Lyssa Amaury, RN) Exam by: A. Amaury RN (Lyssa Amaury, RN) Vaginal Exam Comments: pt stating she feels like she needs to push (Lyssa Amaury, RN) Datetime: 06/24/2016 13:33 Patient Position/Activity: Left Extreme (Lyssa Amaury, RN) Datetime: 06/24/2016 13:32 Communication: RN at Bedside (Lyssa Amaury, RN) Datetime: 06/24/2016 13:30 Monitor Mode: External (Lyssa Amaury, RN) Frequency (min): 2-3 (Lyssa Amaury, RN) Quality: Moderate to Strong (Lyssa Amaury, RN) Duration (sec): 70-90 (Lyssa Amaury, RN) Resting Tone (Palpate): Relaxed (Lyssa Amaury, RN) Monitor Mode: External US (Lyssa Amaury, RN) FHR Baseline Rate : 140 (Lyssa Amaury, RN) Variability: Minimal - Undetectable to <=5 bpm (Lyssa Amaury, RN) Accelerations: None (Lyssa Amaury, RN) Decelerations: Early (Lyssa Amaury, RN) Datetime: 06/24/2016 13:15 Monitor Mode: External (Lyssa Amaury, RN) Frequency (min): 2-4 (Lyssa Amaury, RN) Quality: Moderate to Strong (Lyssa Amaury, RN) Duration (sec): 60-90 (Lyssa Amaury, RN) Resting Tone (Palpate): Relaxed (Lyssa Amaury, RN) Monitor Mode: External US (Lyssa Amaury, RN) FHR Baseline Rate : 140 (Lyssa Amaury, RN) Variability: Moderate 6-25 bpm (Lyssa Amaury, RN) Accelerations: None (Lyssa Amaury, RN) Decelerations: Early (Lyssa Amaury, RN) Pitocin (milliunit): Pitocin Increased to (milliunits) @ 20 (Lyssa Amaury, RN) Datetime: 06/24/2016 13:05 NBP Sys/Vilma/Mean (mmHg): 123 (QS system process) : 71 (QS system process) : 91 (QS system process) Pulse: 88 (QS system process) LaborFlag: Antepartum (QS system process) Datetime: 06/24/2016 13:00 Monitor Mode: External (Lyssa Amaury, RN) Frequency (min): 2-4 (Lyssa Amaury, RN) Quality: Moderate (Lyssa Amaury, RN) Duration (sec): 50-80 (Lyssa Amaury, RN) Resting Tone (Palpate): Relaxed (Lyssa Amaury, RN) Monitor Mode: External US (Lyssa Amaury, RN) FHR Baseline Rate : 145 (Lyssa Amaury, RN) Variability: Moderate 6-25 bpm (Lyssa Amaury, RN) Accelerations: None (Lyssa Amaury, RN) Decelerations: Early (Lyssa Amaury, RN) Datetime: 06/24/2016 12:45 Monitor Mode: External (Lyssa Amaury, RN) Frequency (min): 2-4 (Lyssa Amaury, RN) Quality: Moderate (Lyssa Amaury, RN) Duration (sec): 60-80 (Lyssa Amaury, RN) Resting Tone (Palpate): Relaxed (Lyssa Amaury, RN) Monitor Mode: External US (Lyssa Amaury, RN) FHR Baseline Rate : 145 (Lyssa Amaury, RN) Variability: Moderate 6-25 bpm (Lyssa Amaury, RN) Accelerations: None (Lyssa Amaury, RN) Decelerations: None (Lyssa Amaury, RN) Pitocin (milliunit): Pitocin Increased to (milliunits) @ 18 (Lyssa Amaury, RN) Datetime: 06/24/2016 12:32 Pain Scale: 5 (Lyssa Amaury, RN) Pain Presence: Intermittent (Lyssa Amaury, RN) Pain Type: Contraction (Lyssa Amaury, RN) Pain Location: Abdomen; Perineum (Lyssa Rebolledo, RN) Pain Relief Measures: Comfort Measures (Lyssa Rebolledo, RN) Pain Coping: Requesting Pain Medication or Epidural; Crying (Lyssa Rebolledo RN) Pain Assessment Comments: family member rubbing pt back (Lyssa Rebolledo RN) Medication Comments: 10mg Nubain IV 12.5mg Phenergan IV (Lyssa Rebolledo, RN) LaborFlag: Antepartum (QS system process) Datetime: 06/24/2016 12:30 Monitor Mode: External; Palpation (Lyssa Rebolledo, RN) Frequency (min): irreg (Lyssa Amaury, RN) Quality: Moderate (Lyssa Amaury, RN) Resting Tone (Palpate): Relaxed (Lyssa Amaury, RN) Monitor Mode: External US (Lyssa Amaury, RN) FHR Baseline Rate : 150 (Lyssa Amaury, RN) Variability: Moderate 6-25 bpm (Lyssa Amaury, RN) Accelerations: None (Lyssa Amaury, RN) Decelerations: None (Lyssa Amaury, RN) Datetime: 06/24/2016 12:22 Dilatation (cm): 6.0 (Lyssa Amaury, RN) Effacement (%): 80 (Lyssa Amaury, RN) Station: -1 (Lyssa Amaury, RN) Exam by: GuerreroKelby Houston CNM (Lyssa Amaury, RN) Datetime: 06/24/2016 12:15 Monitor Mode: External (Lyssa Amaury, RN) Frequency (min): irreg (Lyssa Amaury, RN) Quality: Moderate to Strong (Lyssa Amaury, RN) Resting Tone (Palpate): Relaxed (Lyssa Amaury, RN) Monitor Mode: External US (Lyssa Amaury, RN) FHR Baseline Rate : 145 (Lyssa Amaury, RN) Variability: Moderate 6-25 bpm (Lyssa Amaury, RN) Accelerations: 15X15 (Lyssa Amaury, RN) Decelerations: None (Lyssa Amaury, RN) Datetime: 06/24/2016 12:13 Communication: RN at Bedside (Lyssa Amaury, RN) Datetime: 06/24/2016 12:12 Patient Care Comments: pt on all fours, kneeling over bed (Lyssa Amaury, RN) Datetime: 06/24/2016 12:00 Monitor Mode: External (Lyssa Amaury, RN) Frequency (min): irreg (Lyssa Amaury, RN) Quality: Moderate (Lyssa Amaury, RN) Resting Tone (Palpate): Relaxed (Lyssa Amaury, RN) Monitor Mode: External US (Lyssa Amaury, RN) FHR Baseline Rate : 135 (Lyssa Amaury, RN) Variability: Moderate 6-25 bpm (Lyssa Amaury, RN) Accelerations: 15X15 (Lyssa Amaury, RN) Decelerations: None (Lyssa Amaury, RN) Comments: pt moving around in bed, rocking (Lyssa Amaury, RN) Datetime: 06/24/2016 11:45 Monitor Mode: External (Lyssa Amaury, RN) Frequency (min): 2-4 (Lyssa Amaury, RN) Quality: Moderate (Lyssa Amaury, RN) Duration (sec): 60-90 (Lyssa Amaury, RN) Resting Tone (Palpate): Relaxed (Lyssa Amaury, RN) Comments: unable to determine (Lyssa Amaury, RN) Datetime: 06/24/2016 11:37 I/O Interventions: Up to BR (Lyssa Amaury, RN) Datetime: 06/24/2016 11:30 Monitor Mode: External (Lyssa Amaury, RN) Frequency (min): 3-5 (Lyssa Amaury, RN) Quality: Moderate to Strong (Lyssa Amaury, RN) Duration (sec): 60-90 (Lyssa Amaury, RN) Resting Tone (Palpate): Relaxed (Lyssa Amaury, RN) Monitor Mode: External US (Lyssa Amaury, RN) FHR Baseline Rate : 145 (Lyssa Amaury, RN) Variability: Moderate 6-25 bpm (Lyssa Amaury, RN) Accelerations: 15X15 (Lyssa Amaury, RN) Decelerations: None (Lyssa Amaury, RN) Datetime: 06/24/2016 11:29 Patient Care Comments: pt on all fours in the bed leaning over peanut ball (Lyssa Amaury, RN) Communication: RN at Bedside (Lyssa Blandonmes, RN) Datetime: 06/24/2016 11:28 Dilatation (cm): 6.5 (Lyssa Amaury, RN) Effacement (%): 90 (Lyssa Amaury, RN) Station: -1 (Lyssa Amaury, RN) Exam by: Magalis Rebolledo RN (Lyssa Amaury, RN) Datetime: 06/24/2016 11:26 NBP Sys/Vilma/Mean (mmHg): 143 (QS system process) : 91 (QS system process) : 109 (QS system process) Pulse: 96 (QS system process) LaborFlag: Antepartum (QS system process) Datetime: 06/24/2016 11:15 Monitor Mode: External; Palpation (Lyssa Amaury, RN) Frequency (min): 1-3 (Lyssa Amaury, RN) Quality: Moderate to Strong (Lyssa Amaury, RN) Duration (sec): 60-90 (Lyssa Amaury, RN) Resting Tone (Palpate): Relaxed (Lyssa Amaury, RN) Monitor Mode: External US (Lyssa Amaury, RN) FHR Baseline Rate : 145 (Lyssa Amaury, RN) Variability: Moderate 6-25 bpm (Lyssa Amaury, RN) Accelerations: 15X15 (Lyssa Amaury, RN) Decelerations: None (Lyssa Amaury, RN) Datetime: 06/24/2016 11:00 Monitor Mode: External (Lyssa Amaury, RN) Frequency (min): 2-3 (Lyssa Amaury, RN) Quality: Moderate (Lyssa Amaury, RN) Duration (sec): 60-90 (Lyssa Amaury, RN) Resting Tone (Palpate): Relaxed (Lyssa Amaury, RN) Monitor Mode: External US (Lyssa Amaury, RN) FHR Baseline Rate : 145 (Lyssa Amaury, RN) Variability: Moderate 6-25 bpm (Lyssa Amaury, RN) Accelerations: 15X15 (Lyssa Amaury, RN) Decelerations: None (Lyssa Amaury, RN) Datetime: 06/24/2016 10:56 NBP Sys/Vilma/Mean (mmHg): 140 (QS system process) : 91 (QS system process) : 107 (QS system process) Pulse: 98 (QS system process) LaborFlag: Antepartum (QS system process) Datetime: 06/24/2016 10:45 Monitor Mode: External; Palpation (Lyssa Amaury, RN) Frequency (min): 2-3 (Lyssa Amaury, RN) Quality: Moderate (Lyssa Amaury, RN) Duration (sec): 60-90 (Lyssa Amaury, RN) Resting Tone (Palpate): Relaxed (Lyssa Amaury, RN) Monitor Mode: External US (Lyssa Amaury, RN) FHR Baseline Rate : 145 (Lyssa Amaury, RN) Variability: Moderate 6-25 bpm (Lyssa Amaury, RN) Accelerations: 15X15 (Lyssa Amaury, RN) Decelerations: None (Lyssa Amaury, RN) Datetime: 06/24/2016 10:43 Temperature (F): 98.0 (Lyssa Amaury, RN) Temperature (C): 36.7 (QS system process) LaborFlag: Antepartum (QS system process) Datetime: 06/24/2016 10:30 Monitor Mode: External (Lyssa Amaury, RN) Frequency (min): 3-5 (Lyssa Amaury, RN) Quality: Moderate (Lyssa Amaury, RN) Duration (sec): 70-90 (Lyssa Amaury, RN) Resting Tone (Palpate): Relaxed (Lyssa Amaury, RN) Monitor Mode: External US (Lyssa Amaury, RN) FHR Baseline Rate : 145 (Lyssa Amaury, RN) Variability: Moderate 6-25 bpm (Lyssa Amaury, RN) Accelerations: 15X15 (Lyssa Amaury, RN) Decelerations: None (Lyssa Amaury, RN) Datetime: 06/24/2016 10:27 NBP Sys/Vilma/Mean (mmHg): 132 (QS system process) : 74 (QS system process) : 96 (QS system process) Pulse: 91 (QS system process) LaborFlag: Antepartum (QS system process) Datetime: 06/24/2016 10:26 Pitocin (milliunit): Pitocin Increased to (milliunits) @ 16 (Lyssa Rebolledo, RN) Datetime: 06/24/2016 10:24 Pain Scale: 3 (Lyssa Rebolledo RN) Pain Presence: Intermittent (Lyssa Rebolledo, RN) Pain Type: Contraction (Lyssa Rebolledo, RN) Pain Location: Abdomen (Lyssa Rebolledo, RN) Pain Relief Measures: Comfort Measures (Lyssa Rebolledo RN) Pain Coping: Declines Medication or Epidural (Lyssa Rebolledo RN) Comfort Measures: Breathing/Relaxation; Rocking Chair; Family Support (Lyssa Rebolledo RN) LaborFlag: Antepartum (QS system process) Datetime: 06/24/2016 10:15 Monitor Mode: External (Lyssa Rebolledo, RN) Frequency (min): 2-4 (Lyssa Blandonmes, RN) Quality: Moderate (Lyssa Amaury, RN) Duration (sec): 60-90 (Lyssa Amaury, RN) Resting Tone (Palpate): Relaxed (Lyssa Rebolledo, RN) Monitor Mode: External US (Lyssa Amaury, RN) FHR Baseline Rate : 145 (Lyssa Amaury, RN) Variability: Moderate 6-25 bpm (Lyssa Amaury, RN) Accelerations: 15X15 (Lyssa Amaury, RN) Decelerations: None (Lyssa Amaury, RN) Datetime: 06/24/2016 10:00 Monitor Mode: External (Lyssa Amaury, RN) Frequency (min): 2-3 (Lyssa Amaury, RN) Quality: Moderate (Lyssa Amaury, RN) Duration (sec): 60-90 (Lyssa Amaury, RN) Resting Tone (Palpate): Relaxed (Lyssa Amaury, RN) Monitor Mode: External US (Lyssa Amaury, RN) FHR Baseline Rate : 145 (Lyssa Amaury, RN) Variability: Moderate 6-25 bpm (Lyssa Amaury, RN) Accelerations: 15X15 (Lyssa Amaury, RN) Decelerations: None (Lyssa Amaury, RN) Datetime: 06/24/2016 09:56 NBP Sys/Vilma/Mean (mmHg): 130 (QS system process) : 84 (QS system process) : 102 (QS system process) Pulse: 93 (QS system process) LaborFlag: Antepartum (QS system process) Datetime: 06/24/2016 09:50 Pitocin (milliunit): Pitocin Increased to (milliunits) @ 14 (Lyssa Amaury, RN) Datetime: 06/24/2016 09:45 Monitor Mode: External; Palpation (Lyssa Amaury, RN) Frequency (min): 2-4 (Lyssa Amaury, RN) Quality: Moderate (Lyssa Amaury, RN) Duration (sec): 60-90 (Lyssa Amaury, RN) Resting Tone (Palpate): Relaxed (Lyssa Amaury, RN) Monitor Mode: External US (Lyssa Amaury, RN) FHR Baseline Rate : 145 (Lyssa Amaury, RN) Variability: Moderate 6-25 bpm (Lyssa Amaury, RN) Accelerations: 15X15 (Lyssa Amaury, RN) Decelerations: None (Lyssa Amaury, RN) Datetime: 06/24/2016 09:30 Monitor Mode: External (Lyssa Amaury, RN) Frequency (min): 2-3 (Lyssa Amaury, RN) Quality: Moderate (Lyssa Amaury, RN) Duration (sec): 60-90 (Lyssa Amaury, RN) Resting Tone (Palpate): Relaxed (Lsysa Amaury, RN) Monitor Mode: External US (Lyssa Amaury, RN) FHR Baseline Rate : 140 (Lyssa Amaury, RN) Variability: Moderate 6-25 bpm (Lyssa Amaury, RN) Accelerations: 15X15 (Lyssa Amaury, RN) Decelerations: None (Lyssa Amaury, RN) Datetime: 06/24/2016 09:27 NBP Sys/Vilma/Mean (mmHg): 132 (QS system process) : 85 (QS system process) : 102 (QS system process) Pulse: 89 (QS system process) LaborFlag: Antepartum (QS system process) Datetime: 06/24/2016 09:21 Pitocin (milliunit): Pitocin Increased to (milliunits) @ 12 (Lyssa Amaury, RN) Datetime: 06/24/2016 09:15 Monitor Mode: External (Lyssa Amaury, RN) Frequency (min): 1-3 (Lyssa Amaury, RN) Quality: Mild/Moderate (Lyssa Amaury, RN) Duration (sec): 60-90 (Lyssa Amaury, RN) Resting Tone (Palpate): Relaxed (Lyssa Amaury, RN) Monitor Mode: External US (Lyssa Amaury, RN) FHR Baseline Rate : 145 (Lyssa Amaury, RN) Variability: Moderate 6-25 bpm (Lyssa Amaury, RN) Accelerations: 15X15 (Lyssa Amaury, RN) Decelerations: None (Lyssa Amaury, RN) Datetime: 06/24/2016 09:00 Contraction Comments: unable to determine (Lyssa Rebolledo, RN) Comments: unable to determine (Lyssa Rebolledo, RN) Membrane Status: Ruptured (Lyssa Rebolledo, RN) Membranes Rupture Method: Spontaneous (Lyssa Rebolledo, RN) Amniotic Fluid Color: Clear (Lyssa Rebolledo, RN) Amniotic Fluid Amount: Moderate (Lyssa Rebolledo, RN) Amniotic Fluid Odor: Normal (Lyssa Rebolledo, RN) Datetime: 06/24/2016 08:57 Medication Comments: 650mg Tylenol PO (Lyssa Rebolledo, MADDY) Datetime: 06/24/2016 08:45 Monitor Mode: External; Palpation (Lyssa Rebolledo, RN) Frequency (min): 2-4 (Lyssa Rebolledo, RN) Quality: Mild/Moderate (Lyssa Rebolledo, RN) Duration (sec): 60-90 (Lyssa Rebolledo, RN) Resting Tone (Palpate): Relaxed (Lyssa Amaury, RN) Monitor Mode: External US (Lyssa Amaury, RN) Variability: Moderate 6-25 bpm (Lyssa Amaury, RN) Comments: unable to determine baseline due to movement (Lyssa Amaury, RN) Datetime: 06/24/2016 08:42 Dilatation (cm): 3.0 (Lyssa Amaury, RN) Effacement (%): 50 (Lyssa Amaury, RN) Station: -2 (Lyssa Amaury, RN) Exam by: Magalis Conrad CNM (Lyssa Amaury, RN) Datetime: 06/24/2016 08:39 Pitocin (milliunit): Pitocin Increased to (milliunits) @ 10 (Lyssa Amaury, RN) Datetime: 06/24/2016 08:30 Monitor Mode: External (Lyssa Amaury, RN) Frequency (min): 2-4 (Lyssa Amaury, RN) Quality: Mild (Lyssa Amaury, RN) Duration (sec): 60-90 (Lyssa Amaury, RN) Resting Tone (Palpate): Relaxed (Lyssa Amaury, RN) Monitor Mode: External US (Lyssa Amaury, RN) Variability: Moderate 6-25 bpm (Lyssa Amaury, RN) Comments: unable to determine baseline due to movement, movement audible (Lyssa Amaury, RN) Datetime: 06/24/2016 08:26 NBP Sys/Vilma/Mean (mmHg): 113 (QS system process) : 60 (QS system process) : 75 (QS system process) Pulse: 84 (QS system process) LaborFlag: Antepartum (QS system process) Datetime: 06/24/2016 08:25 Pitocin (milliunit): Pitocin Increased to (milliunits) @ 8 (Lyssa Amaury, RN) Datetime: 06/24/2016 08:15 Monitor Mode: External; Palpation (Lyssa Amaury, RN) Frequency (min): 2-4 (Lyssa Amaury, RN) Quality: Mild (Lyssa Amaury, RN) Duration (sec): 60-90 (Lyssa Amaury, RN) Resting Tone (Palpate): Relaxed (Lyssa Amaury, RN) Monitor Mode: External US (Lyssa Amaury, RN) FHR Baseline Rate : 140 (Lyssa Amaury, RN) Variability: Moderate 6-25 bpm (Lyssa Amaury, RN) Accelerations: 15X15 (Lyssa Amaury, RN) Decelerations: None (Lyssa Amaury, RN) Datetime: 06/24/2016 08:00 Monitor Mode: External; Palpation (Lyssa Amaury, RN) Frequency (min): irreg (Lyssa Amaury, RN) Quality: Mild (Lyssa Amaury, RN) Resting Tone (Palpate): Relaxed (Lyssa Amaury, RN) Monitor Mode: External US (Lyssa Amaury, RN) FHR Baseline Rate : 140 (Lyssa Amaury, RN) Variability: Moderate 6-25 bpm (Lyssa Amaury, RN) Accelerations: 15X15 (Lyssa Amaury, RN) Decelerations: None (Lyssa Amaury, RN) Datetime: 06/24/2016 07:56 NBP Sys/Vilma/Mean (mmHg): 115 (QS system process) : 66 (QS system process) : 84 (QS system process) Pulse: 88 (QS system process) LaborFlag: Antepartum (QS system process) Datetime: 06/24/2016 07:55 Pitocin (milliunit): Pitocin Increased to (milliunits) @ 6 (Lyssa Amaury, RN) Patient Position/Activity: Left Tilt (Lyssa Amaury, RN) Datetime: 06/24/2016 07:53 Monitor Interventions for UA: [place] Adjusted (Lyssa Amaury, RN) Monitor Interventions for FHR: Ultrasound Adjusted (Lyssa Amaury, RN) Communication: RN at Bedside (Lyssa Amaury, RN) Datetime: 06/24/2016 07:45 Monitor Mode: External (Lyssa Amaury, RN) Frequency (min): irreg (Lyssa Amaury, RN) Quality: Mild (Lyssa Amaury, RN) Resting Tone (Palpate): Relaxed (Lyssa Amaury, RN) Monitor Mode: External US (Lyssa Amaury, RN) FHR Baseline Rate : 135 (Lyssa Amaury, RN) Variability: Moderate 6-25 bpm (Lyssa Amaury, RN) Accelerations: None (Lyssa Amaury, RN) Decelerations: None (Lyssa Amaury, RN) Datetime: 06/24/2016 07:30 Monitor Mode: External (Lyssa Amaury, RN) Frequency (min): irreg (Lyssa Amaury, RN) Quality: Mild (Lyssa Amaury, RN) Resting Tone (Palpate): Relaxed (Lyssa Amaury, RN) Monitor Mode: External US (Lyssa Amaury, RN) FHR Baseline Rate : 135 (Lyssa Amaury, RN) Variability: Moderate 6-25 bpm (Lyssa Amaury, RN) Accelerations: 15X15 (Lyssa Amaury, RN) Decelerations: None (Lyssa Amaury, RN) Datetime: 06/24/2016 07:23 Pitocin (milliunit): Pitocin Increased to (milliunits) @ 4 (Lyssa Amaury, RN) Datetime: 06/24/2016 07:15 Monitor Mode: External (Lyssa Amaury, RN) Frequency (min): 4-5 (Lyssa Amaury, RN) Quality: Mild (Lyssa Amaury, RN) Duration (sec): 50-90 (Lyssa Amaury, RN) Resting Tone (Palpate): Relaxed (Ylssa Amaury, RN) Monitor Mode: External US (Lyssa Amaury, RN) FHR Baseline Rate : 135 (Lyssa Amaury, RN) Variability: Moderate 6-25 bpm (Lyssa Amaury, RN) Accelerations: 15X15 (Lyssa Amaury, RN) Decelerations: None (Lyssa Amaury, RN) Datetime: 06/24/2016 07:14 Patient Care Comments: pt asleep in bed laying on her left side (Lyssa Amaury, RN) Datetime: 06/24/2016 07:00 Stage of : Antepartum (Chanel Frazier, RN) Monitor Mode: External; Palpation (Chanel Frazier, RN) Frequency (min): 3.5-4.5 (Chanel Frazier, RN) Quality: Mild (Chanel Frazier, RN) Duration (sec): 80-110 (Chanel Frazier RN) Pattern: Normal: <= 5 Contractions in 10 Minutes (Chanel Frazier RN) Resting Tone (Palpate): Relaxed (Chanel Frazier RN) Monitor Mode: External US (Chanel Frazier RN) FHR Baseline Rate : 130 (Chanel Frazier RN) Variability: Moderate 6-25 bpm (Chanel Frazier RN) Accelerations: 15X15 (Chanel Frazier RN) Decelerations: None (Chanel Frazier RN) Pain Coping: Sleeping (Chanel Frazier RN) Communication: RN at Bedside; RN Reviewed Strip (Chanel Frazier RN)
[2016-06-24] MEDS: ZOLPIDEM TARTRATE 5 MG TABLET PO SCH ×2 (19:28→22:45)
[2016-06-24] MEDS ORDERED: ACETAMINOPHEN WITH CODEINE #3 TABLET PO PRN (20:13)
[2016-06-24] MEDS: IBUPROFEN 800 MG TABLET PO SCH (21:19)
[2016-06-25] MEDS: IBUPROFEN 800 MG TABLET PO SCH ×3 (05:38→22:34)
--- NOTE | 2016-06-25 06:00 | L&D Current Admission ---
Current Admit Datetime Report Generated by CPN: 06/25/2016 06:00 ADMISSION INFORMATION Current Admit Date/Time: 06/23/2016 10:00 (06/16/2016 09:44:Lyssa Rebolledo RN) Reason for Admission: Induction of Labor (06/16/2016 09:44:Lyssa Rebolledo RN) Chief Complaint: Scheduled Induction of Labor (06/23/2016 10:15:Sandra Hurtado RN) EGA per Dates: 38.0 (06/16/2016 09:44:QS system process) Method of Arrival: Ambulatory (06/16/2016 09:44:Lyssa Rebolledo RN) Admitted From: Home (06/16/2016 09:44:Lyssa Rebolledo RN) Reason for Induction: Gestational Hypertension (06/16/2016 09:44:Lyssa Rebolledo RN) Records Available: Yes (06/16/2016 09:44:Lyssa Rebolledo RN) BELONGINGS/ADVANCED DIRECTIVES Other Belongings: see signed belongings consent (06/16/2016 09:44:Lyssa Rebolledo RN) Disposition of Belongings: Kept with Patient (06/16/2016 09:44:Lyssa Rebolledo RN) Advance Direct for Healthcare: No, and Wants No Information (06/16/2016 09:44:Lyssa Rebolledo RN) Durable Power of Director Treasurer: No (06/16/2016 09:44:Lyssa Rebolledo RN) Living Will: No (06/16/2016 09:44:Lyssa Rebolledo RN) Organ Donor: No (06/16/2016 09:44:Lyssa Rebolledo RN) Pt Rights Information Given: Yes (06/16/2016 09:44:Lyssa Rebolledo RN) Pt Understands Pt Rights: Yes (06/16/2016 09:44:Lyssa Rebolledo RN) LEARNING ASSESSMENT Knowledge Level: Understands L_D Process; Understands Care Activities; Had Pre-Hospital Education; Understands Diagnosis (06/16/2016 09:44:Lyssa Rebolledo RN) Barriers to Learning: None (06/16/2016 09:44:Lyssa Rebolledo RN) Learning Readiness: Motivated (06/16/2016 09:44:Lyssa Rebolledo RN) Learns Best By: 1 to 1 Instruction (06/16/2016 09:44:Lyssa Rebolledo RN) Learning Needs: Labor and Delivery Process; Pain Management; Symptoms to Report; Treatment Plan; Medication; Diagnosis; Nutrition; Equipment; Infant Care; Community Resources (06/16/2016 09:44:Lyssa Rebolledo RN) NUTRITIONAL/FUNCTIONAL SCREENING Problem with Appetite >5 Days: No (06/16/2016 09:44:Lyssa Rebolledo RN) Chew/Swallow Difficulties: No (06/16/2016 09:44:Lyssa Rebolledo RN) Inappropriate Wt Gain/Loss: No (06/16/2016 09:44:Lyssa Rebolledo RN) Presence Skin Breakdown/Ulcer: No (06/16/2016 09:44:Lyssa Rebolledo RN) Special Diet: No (06/16/2016 09:44:Lyssa Rebolledo RN) Pt Requests Lye Treater Visit: No (06/16/2016 09:44:Lyssa Rebolledo RN) Hx of Any of the Following?: N/A (06/16/2016 09:44:Lyssa Rebolledo RN) New Diagnosis of: N/A (06/16/2016 09:44:Lyssa Rebolledo RN) Requires Assist w/Ambulation: No (06/16/2016 09:44:Lyssa Rebolledo RN) Uses Assist Device to Ambulate: No (06/16/2016 09:44:Lyssa Rebolledo RN) Pt Requires Help w/ADL's: No (06/16/2016 09:44:Lyssa Rebolledo RN)
--- NOTE | 2016-06-25 06:00 | L&D General Admission ---
General Admit Datetime Report Generated by CPN: 06/25/2016 06:00 INFORMATION Patient Age: 25 (06/16/2016 09:31:QS system process) EDC: 07/07/2016 00:00 (06/16/2016 09:35:Ranulfo Monge RN) LMP: 10/01/2015 00:00 (06/16/2016 09:35:Ranulfo Monge RN) : 4 (06/16/2016 09:35:Ranulfo Monge RN) Para: 3 (06/16/2016 11:52:Ranulfo Monge RN) Term: 3 (06/16/2016 09:35:Ranulfo Monge RN) : 0 (06/16/2016 09:35:Ranulfo Monge RN) Spontaneous Abortions: 0 (06/16/2016 09:35:Ranulfo Monge RN) Induced Abortions: 0 (06/16/2016 09:35:Ranulfo Monge RN) Livin (06/16/2016 09:35:Ranulfo Monge RN) Cesareans: 0 (06/16/2016 09:35:Ranulfo Monge RN) VBACs: 0 (06/16/2016 09:35:Ranulfo Monge RN) Ectopic: 0 (06/16/2016 09:35:Ranulfo Monge RN) Multiple Births: 0 (06/16/2016 09:35:Ranulfo Monge RN) Baby, Number in Womb: 1 (06/16/2016 11:52:Ranulfo Monge RN) CARE Primary Nurse Sexual Assault: [facility] (06/16/2016 09:35:Ranulfo Monge RN) Month of 1st Visit: November (06/16/2016 09:35:Ranulfo Monge RN) Adequate Care: Yes (06/16/2016 09:35:Ranulfo Monge RN) Prepregnancy Weight (lb): 143 (06/16/2016 09:35:Ranulfo Monge RN) Prepregnancy Weight (kg): 65.0 (06/16/2016 09:35:QS system process) Height (in): 64 (06/24/2016 16:38:QS system process) ALLERGIES Medication Allergy: Yes (06/16/2016 09:35:Ranulfo Monge RN) Medication Allergies: cholecalciferol (vitamin D3)/Hives (06/23/2016); Bee Sting Kit (06/23/2016); Calcium Citrate * (06/23/2016); metoclopramide/Tachycardia (06/23/2016) (06/23/2016 10:02:QS system process) Latex Allergy: No Latex Allergies (06/16/2016 09:35:Ranulfo Monge RN) Environmental Allergies: Bees (06/16/2016 09:35:Ranulfo Monge RN) COMMUNICATION Primary Language: South Sudanese (06/16/2016 09:35:Ranulfo Monge RN) Medical Tx Preferred Language: [place] Sudanese (06/16/2016 09:35:NALDO Durán) Communication Barrier(s): None (06/16/2016 09:35:Ranulfo Monge RN) DEMOGRAPHICS Address: [address] [place] [id number] (06/16/2016 09:31:QS system process) Zipcode: [phone] (06/16/2016 09:31:QS system process) Home (06/16/2016 09:31:QS system process) Work (06/16/2016 09:31:QS system process) SSN: [id number] (06/16/2016 09:31:QS system process) Next of Kin Name: CYNTHIA ZAMARRIPA (06/16/2016 09:31:QS system process) Next of Kin (06/16/2016 09:31:QS system process) Next of Kin Relationship: OR (06/16/2016 09:31:QS system process) Date of : 1990 (06/16/2016 09:31:QS system process) Marital Status: (06/16/2016 09:31:QS system process) Sex: Female (06/16/2016 09:31:QS system process) Race: (06/16/2016 09:31:QS system process) Ethnicity: Non- or (06/16/2016 09:31:QS system process) Cheondoism: None (06/16/2016 09:31:QS system process) DRUG AND ALCOHOL USE Alcohol: No (06/16/2016 09:35:Ranulfo Monge RN) Cigarettes: Current Everyday Smoker. [id number] (06/16/2016 09:35:Ranulfo Monge RN) Average Cigarettes Smoked: 5 - 10 per day (06/16/2016 09:35:Ranulfo Monge RN) Advised to Stop Smoking: Yes (06/16/2016 09:35:Ranulfo Monge RN) Marijuana: No (06/16/2016 09:35:Ranulfo Monge RN) Cocaine: No (06/16/2016 09:35:Ranulfo Monge RN) Other Illicit Drugs: No (06/16/2016 09:35:Ranulfo Monge RN) VACCINE HISTORY Influenza Vaccine: Yes (06/16/2016 09:35:Ranulfo Monge RN) Influenza Date: 2015 (06/16/2016 09:35:Ranulfo Monge RN) Pneumococcal Vaccine: Uncertain (06/16/2016 09:35:Ranulfo Monge RN) Tetanus Vaccine: Yes (06/16/2016 09:35:Ranulfo Monge RN) Tetanus Date: 2009 (06/16/2016 09:35:Ranulfo Monge RN) Tdap Vaccine: Yes (06/16/2016 09:35:Ranulfo Monge RN) Tdap Date: 2009 (06/16/2016 09:35:Ranulfo Monge RN) Hepatitis B Vaccine: Yes (06/16/2016 09:35:Ranulfo Monge RN) Nursing Unit Clerk: [facility] (06/16/2016 09:35:Ranulfo Monge RN) Feeding Preference: Breast (06/16/2016 09:35:Ranulfo Monge RN) Benefit of Breast Feed Discussed: Yes (06/16/2016 09:35:Ranulfo Monge RN) Circumcision: N/A (06/16/2016 09:35:Ranulfo Monge RN) Classes Attended: No (06/16/2016 09:35:Ranulfo Monge RN) Tubal Ligation: No (06/16/2016 09:35:Ranulfo Monge RN) Tubal Authorization Signed: N/A (06/16/2016 09:35:Ranulfo Monge RN) Consent: N/A (06/16/2016 09:35:Ranulfo Monge RN) Consent Signed: N/A (06/16/2016 09:35:Ranulfo Monge RN) Pain Management Plans: Medications (06/16/2016 09:35:Ranulfo Monge RN) Plans for Labor and Delivery: None (06/16/2016 09:35:Ranulfo Monge RN) Support Person: Austin Pack (06/16/2016 09:35:Ranulfo Monge RN) Support Person Relationship: (06/16/2016 09:35:Ranulfo Monge RN) Cultural/Spritual Practice: No (06/16/2016 09:35:Ranulfo Monge RN) Spir/Cult Dietary Needs: No (06/16/2016 09:35:Ranulfo Monge RN) LIVING SITUATION/DISCHARGE PLAN Living Arrangements: House (06/16/2016 09:35:Ranulfo Monge RN) Adequate Access to:: Electric; Heat; Refrigeration; Plumbing/Running water; Phone; Transportation (06/16/2016 09:35:Ranulfo Monge RN) WIC Program: No (06/16/2016 09:35:Ranulfo Monge RN) Discharge Lead Operator Person: Austin (06/16/2016 09:35:Ranulfo Monge RN) Person to Help after Discharge: Austin/Cynthia Whartongh (06/16/2016 09:35:Ranulfo Monge RN) Currently Using Commun Resources: Yes (06/16/2016 09:35:Ranulfo Monge RN) Specify Current Resource Used: Medicaid (06/16/2016 09:35:Ranulfo Monge RN) Outside Agency/Nutrition Coordinator: No (06/16/2016 09:35:Ranulfo Monge RN) Car Seat for Discharge: Yes (06/16/2016 09:35:Ranulfo Monge RN) Adoption Requested: No (06/16/2016 09:35:Ranulfo Monge RN) Pt Contact w/ Post : N/A (06/16/2016 09:35:Ranulfo Monge RN) LABS Blood Type: O Positive (06/16/2016 09:35:Berna Glover RN) Antibody Screen: negative (06/16/2016 09:35:Berna Glover RN) Hemoglobin: 11.5 L (06/23/2016 10:25:QS system process) Hematocrit: 32.0 L (06/23/2016 10:25:QS system process) MCV: 86 (06/23/2016 10:25:QS system process) Group Beta Strep: negative (06/16/2016 09:35:Berna Glover RN) Gonorrhea: Negative (06/16/2016 09:35:Berna Glover RN) Chlamydia: Negative (06/16/2016 09:35:Berna Glover RN) RPR/VDRL: Nonreactive (06/16/2016 09:35:Berna Glover RN) HIV Results: non-reactive (06/16/2016 09:35:Berna Glover RN) Hepatitis B: Negative (06/16/2016 09:35:Berna Glover RN) Rubella: Immune (06/16/2016 09:35:Berna Glover RN) OB/PREVIOUS HISTORY Age of Menses Onset: 10 (06/16/2016 09:35:Ranulfo Monge RN) Mensus Frequency: 28 (06/16/2016 09:35:Ranulfo Monge RN) Menses Duration: 5 (06/16/2016 09:35:Ranulfo Monge RN) Menses Amount: Moderate (06/16/2016 09:35:Ranulfo Monge RN) LMP Regular: Yes (06/16/2016 09:35:Ranulfo Monge RN) Date Pos Preg Test: 10/18/2015 00:00 (06/16/2016 09:35:Ranulfo Monge RN) BCP at Conception: No (06/16/2016 09:35:Ranulfo Monge RN) LMP: 10/01/2015 00:00 (06/16/2016 09:35:Ranulfo Monge RN) Previous Procedures: Ultrasound (06/16/2016 09:35:Ranulfo Monge RN) Current Procedures: Ultrasound; NST (06/16/2016 09:35:Ranulfo Monge RN) History of Previous : No (06/16/2016 09:35:Ranulfo Monge RN) History of Gestational Diabetes: No (06/16/2016 09:35:Ranulfo Monge RN) History of PIH: Yes (06/16/2016 09:35:Ranulfo Monge RN) History of Incompetent Cervix: No (06/16/2016 09:35:Ranulfo Monge RN) History of Placenta Previa/Abrup: No (06/16/2016 09:35:Ranulfo Monge RN) History of Macrosomia: No (06/16/2016 09:35:Ranulfo Monge RN) History of IUGR: No (06/16/2016 09:35:Ranulfo Monge RN) History of Hemorrhage: No (06/16/2016 09:35:Ranulfo Monge RN) History of Loss/Stillborn: No (06/16/2016 09:35:Ranulfo Monge RN) History of : No (06/16/2016 09:35:Ranulfo Monge RN) History of D (Rh) Sensitization: No (06/16/2016 09:35:Ranulfo Monge RN) History Recurrent Loss/Stillborn: No (06/16/2016 09:35:Ranulfo Monge RN) History Depression/PP Depression: No (06/16/2016 09:35:Ranulfo Monge RN) History of Uterine Anomaly/LAURA: No (06/16/2016 09:35:Ranulfo Monge RN) History of Infertility: No (06/16/2016 09:35:Ranulfo Monge RN) History of ART Treatment: No (06/16/2016 09:35:Ranulfo Monge RN) History of LAURA: No (06/16/2016 09:35:Ranulfo Monge RN) MEDICAL HISTORY Med Hx Diabetes: No (06/16/2016 09:35:Ranulfo Monge RN) Med Hx Hypertension: No (06/16/2016 09:35:Ranulfo Monge RN) Med Hx Heart Disease: No (06/16/2016 09:35:Ranulfo Monge RN) Med Hx Autoimmune Disorder: No (06/16/2016 09:35:Ranulfo Monge RN) Med Hx Kidney Disease/UTI: No (06/16/2016 09:35:Ranulfo Monge RN) Med Hx Neurologic/Epilepsy: No (06/16/2016 09:35:Ranulfo Monge RN) Med Hx Psychiatric Disorders: No (06/16/2016 09:35:Ranulfo Monge RN) Med Hx Hepatitis/Liver Disease: No (06/16/2016 09:35:Ranulfo Monge RN) Med Hx Varicosities/Phlebitis: No (06/16/2016 09:35:Ranulfo Monge RN) Med Hx Thyroid Dysfunction: No (06/16/2016 09:35:Ranulfo Monge RN) Med Hx Trauma/Violence: No (06/16/2016 09:35:Ranulfo Monge RN) Med Hx Blood Transfusion: No (06/16/2016 09:35:Ranulfo Monge RN) Med Hx Pulmonary (Asthma,TB): Yes (06/16/2016 09:35:Ranulfo Monge RN) Med Hx Breast: No (06/16/2016 09:35:Ranulfo Monge RN) Med Hx DIRECTOR OF ENGINEERING Surgery: No (06/16/2016 09:35:Ranulfo Monge RN) Med Hx Hospitalization/Surgery: Yes (06/16/2016 09:35:Ranulfo Monge RN) Med Hx Anesthetic Complications: Yes (06/16/2016 09:35:Ranulfo Monge RN) Med Hx Abnormal Pap Smear: No (06/16/2016 09:35:Ranulfo Monge RN) Other Medical Diseases: No (06/16/2016 09:35:Ranulfo Monge RN) Med Hx Significant Family Hx: No (06/16/2016 09:35:Ranulfo Monge RN) Details of Med/Surg Hx: CHILDBIRTH Numbness for two months post epidural (06/16/2016 09:35:Sandra Hurtado RN) INFECTIOUS HISTORY Inf Hx Gonorrhea: No (06/16/2016 09:35:Ranulfo Monge RN) Inf Hx Chlamydia: No (06/16/2016 09:35:Ranulfo Monge RN) Inf Hx Syphilis: No (06/16/2016 09:35:Ranulfo Monge RN) Inf Hx HIV/AIDS: No (06/16/2016 09:35:Ranulfo Monge RN) Inf Hx Human Papilloma Virus: No (06/16/2016 09:35:Ranulfo Monge RN) Inf Hx Pt/Partner Genital Herpes: No (06/16/2016 09:35:Ranulfo Monge RN) Inf Hx Tuberculosis/Exposure: No (06/16/2016 09:35:Ranulfo Monge RN) Inf Hx Hepatitis B,C: No (06/16/2016 09:35:Ranulfo Monge RN) Inf Hx Rash or Viral Illness: No (06/16/2016 09:35:Ranulfo Monge RN) GENETIC HISTORY Gen Hx Age >=35 at GILL: No (06/16/2016 09:35:Ranulfo Monge RN) Gen Hx Thalassemia: No (06/16/2016 09:35:Ranulfo Monge RN) Gen Hx Congenital Heart Defect: No (06/16/2016 09:35:Ranulfo Monge RN) Gen Hx Neural Tube Defect: No (06/16/2016 09:35:Ranulfo Monge RN) Gen Hx Down's Syndrome: No (06/16/2016 09:35:Ranulfo Monge RN) Gen Hx Bong-Sachs: No (06/16/2016 09:35:Ranulfo Monge RN) Gen Hx Arnulfo: No (06/16/2016 09:35:Ranulfo Monge RN) Gen Hx Familial Dysautonomia: No (06/16/2016 09:35:Ranulfo Monge RN) Gen Hx Sickle Cell Disease/Trait: No (06/16/2016 09:35:Ranulfo Monge RN) Gen Hx Hemophilia/Blood Disorder: No (06/16/2016 09:35:Ranulfo Monge RN) Gen Hx Muscular Dystrophy: No (06/16/2016 09:35:Ranulfo Monge RN) Gen Hx Cystic Fibrosis: No (06/16/2016 09:35:Ranulfo Monge RN) Gen Hx Huntingtons Chorea: No (06/16/2016 09:35:Ranulfo Monge RN) Gen Hx Mental Retardation/Autism: No (06/16/2016 09:35:Ranulfo Monge RN) Gen Hx Tested for Fragile X: No (06/16/2016 09:35:Ranulfo Monge RN) Gen Hx Other Inher/Chromosomal: No (06/16/2016 09:35:Ranulfo Monge RN) Gen Hx Maternal Metabolic DO: No (06/16/2016 09:35:Ranulfo Monge RN) Gen Hx Pt Father or FOB Defect: No (06/16/2016 09:35:Ranulfo Monge RN) Gen Hx Other Genetic History: No (06/16/2016 09:35:Ranulfo Monge RN) Gen Hx Drugs/Meds since LMP: No (06/16/2016 09:35:Ranulfo Monge RN)
--- NOTE | 2016-06-25 06:15 | L&D Care Plan ---
LD CARE PLANS Datetime Report Generated by CPN: 06/25/2016 06:15 Datetime: 06/23/2016 09:56 Pain State: Risk For (Molly Camp, RNC) Related To: Labor and Delivery Process; Treatment and Procedures; Post (Molly Camp, RNC) Goal(s): Patients Pain will be Assessed and Managed; Patient will Verbalize Adequate Relief of Pain or the Ability to [place] with Current Pain (Molly Camp, RNC) Interventions: Assess Pain Severity on Scale of 0 (None) to 5 (Severe); Assess Type, Location and Intensity of Pain Each Time Client Reports Discomfort and Notify Provider if Unusal Pain Develops; Encourage Proper Breathing and Relaxation Techniques; Offer Alternatives Such as Repositioning, Calm Environment, Massages, Diversional Activities, Ice Pack, Splinting, and Ambulation; Administer Analgesics as Ordered; Assist with Epidural Placement as Appropriate; Evaluate Therapeutic Effectiveness of Medication and Treatments (Molly Augusitn, NALDO) Outcome: Patient will Report Absence or Relief of Pain Consistent with Established Pain Goal (NALDO Durán) Status: Ongoing (NALDO Durán) Outcome: Patient will have a Decrease in Signs and Symptoms of Discomfort (Molly Augustin, RNMarge) Status: Ongoing (NALDO Durán) Outcome: Pain will be Controlled During Procedures (NALDO Durán) Status: Ongoing (NALDO Durán) Anxiety State: Risk For (NALDO Durán) Related To: Labor and Delivery Process; Fear of Unknown; Situational Crisis; Medical Interventions; Significant Life Event (NALDO Durán) Goal(s): Patient will have Decreased Anxiety and be able to Function at Acceptable Levels (Molly Augustin, NALDO) Interventions: Assess Verbal and Nonverbal Behavioral Indicators of Anxiety; Assist Patient to Identify and Verbalize Symptoms of Anxiety; Identify and Demonstrate Techniques to Control Anxiety; Assist Patient with Coping Mechanisms to Manage Anxiety; Provide Theraputic Touch for the Patient; Explain to Patient, Using a Calm Reassuring Approach and Nonmedical Terms, All Activities, Procedures, and Concerns; Instruct Patient and Family about Post Discharge Care, Limitations, Symptoms to Report and Resources Available (Molly Augustin, NALDO) Outcome: Patient will Identify, Verbalize and Demonstrate Techniques to Control Anxiety (NALDO Durán) Status: Ongoing (Molly Augustin, NALDO) Outcome: Patient's Posture, Facial Expressions, Gestures and Activity Level will Reflect Decreased Anxiety (NALDO Durán) Status: Ongoing (Molly Augustin, RNC) Outcome: Patient will Verbalize a Sense of Control and/or Acceptance of the Situation (Molly Augustin, NALDO) Status: Ongoing (Molly Augustin, RN) Outcome: Patient will Identify and Utilize Support Person (NALDO Durán) Status: Ongoing (Molly Augustin RN) Knowledge Deficit State: Risk For (NALDO Durán) Related To: Labor and Delivery Process; Treatment and Procedures; Feeding and Infant Care; Community Resources and Available Support Mechanisms (NALDO Durán) Goal(s): Patient will Accurately Verbalize Understanding of Plan of Care and Treatment; Patient and Family will Accurately Verbalize Understanding of the Disease Process (NALDO Durán) Interventions: Assess Motivation and Willingness of Patient/Family to Learn; Assess Preferred Learning Mode: One to One Instruction, Reading, Videos, Group Discussion or Demonstration; Assess Barriers to Learning: Pain, Emotional State, Language Barrier, Cognitive Impairment, Visual or Hearing Deficits; Assess Patient and Family Knowledge of Disease Process, Medications and Treatment; Discuss Therapy and/or Treatment Options, Describe Rationale Behind Management, Therapy and Treatment Recommendations; Instruct Patient and Family on Signs and Symptoms to Report; Instruct Patient and Family on Medication Effects and Side Effects; Provide Appropriate and Timely Education Using Multiple Techniques; Provide Patient and Family with Support Group Information and Resources; Give Clear and Thorough Explanations and Demonstrations (NALDO Durán) Outcome: Patient and Family will Verbalize Understanding of Condition, Treatment and Signs and Symptoms to Report (NALDO Durán) Status: Ongoing (NALDO Durán) Outcome: Patient will Identify Perceived Learning Needs and Express Motivation to Learn (Molly Augustin, RNC) Status: Ongoing (Molly [place], RNC) Outcome: Patient will Verbalize Understanding of Desired Content, and/or Performs Desired Skill Prior to Discharge (Molly Augustin, RN) Status: Ongoing (Molly Augustin, RNC) Fluid Volume State: Risk For (Molly Augustin, [facility]) Related To: Gestational Hypertension (Molly Augustin, [facility]) Goal(s): Patient will Achieve and Maintain a Balanced Fluid Volume Status; Hemodynamically Stable (Molly Augustin, RNC) Interventions: Monitor Vital Signs; Auscultate Breath Sounds; Monitor Patient for Skin Turgor, Mucous Membranes, Dry Skin, Weakness, Headaches and Confusion; Provide Oral Fluids as Ordered; Initiate and Maintain Intravenous Fluids as Ordered; Monitor Intake and Output as Indicated Per Patient Status; Accurately Measure Blood Loss; Monitor Lab and Test Results as Obtained and Notify Provider of Abnormal Findings; Monitor Patient's Weight (Molly Augustin, [facility]) Outcome: Patient will have Clear Lung Sounds (Molly Augustin, RNC) Status: Ongoing (Molly Augustin, RNC) Outcome: Patient will have Vital Signs within Expected Range (Molly Charli, RNC) Status: Ongoing (Molly [place], RNC) Outcome: Urine Output will be within Expected Range (Molly Charli, RNC) Status: Ongoing (Molly [place], RNC) Outcome: Patient will have Minimal Generalized or Upper Extremity Edema (Molly Charli, RNC) Status: Ongoing (Molly Charli, RNC) Injury State: Risk For (Molly Camp, RNC) Related To: Labor and Delivery Process; Gestational Hypertension or Eclampsia; Anesthesia (Molly Camp, RNC) Goal(s): Patient will Remain Free from Injury (Molly Camp, RNC) Interventions: Monitoring as per Hospital Protocol; Assess Neurological Status; Perform Risk Assessment of Patients with Induction and ; Perform Fall Risk Assessment and Prevention per Hospital Protocol; Perform DVT Risk Assessment and Prophylaxis per Hospital Protocol; Ensure that Oxygen, Suction, and Resuscitation Medications and Equipment are Readily Available; Confirm Patient ID Prior to Procedure(s) and Medication Administration per Hospital Policy (Molly Camp, RNC) Outcome: Successful Fall Risk Prevention (Molly Camp, RNC) Status: Ongoing (Molly Camp, RNC) Outcome: Patient will Deliver Infant without Adverse Sequela (Molly Camp, RNC) Status: Ongoing (Molly Camp, RNC) Outcome: Patient's Neurological Status will Remain Stable (Molly Camp, RNC) Status: Ongoing (Molly Camp, RNC) Impaired Skin Integrity State: Risk For (Molly Camp, RNC) Related To: Vaginal Delivery; Surgical Procedures; Invasive Procedures (Molly Camp, RNC) Goal(s): Patient will Maintain Optimal Skin Integrity, Free of Breakdown, Injury or Infection (Molly Camp, RNC) Interventions: Complete Screening for Pressure Ulcer Risk and Initiate Protocol per Hospital Policy; Monitor Site of Skin Impairment for Color Changes, Redness, Swelling, Warmth, Pain or Other Signs of Infection; Encourage and Assist with Position Changes; Monitor Patient's Mobility Status; Provide Adequate Nutrition and Fluids; Teach Patient Appropriate Hygienic Care; Teach Patient/Family Skin Care Management (Molly Augustin, MADDYC) Outcome: Patient will not have Evidence of Injury Such as Skin Breakdown, Scrapes, Cuts, or Bruising (Molly Augustin, RNC) Status: Ongoing (Molly Augustin, RNC) Outcome: Patient will Report Any Altered Sensation or Pain at Site of Skin Impairment (Molly Augustin, RNC) Status: Ongoing (Molly Augustin, RNC) Outcome: Patients Incisions and Wounds will be without Signs or Symptoms of Infection (oMlly Augustin, MADDYC) Status: Ongoing (Molly Augustin, MADDYC) Outcome: Patient will Demonstrate Understanding of Plan to Heal Skin and Prevent Reinjury and Verbalize Risk Factors (Molly Augustin, NALDO) Status: Ongoing (Molly Augustin, MADDYC) Nutrition State: Actual (NALDO Durán) Related To: (Molly Augustin, NALDO) Goal(s): Patient will have an Intake of Nutrients Sufficient to Meet Metabolic Needs (NALDO Durán) Interventions: Nutritional Screening and Assessment per Hospital Policy; Consult Scrum Master for Further Assessment and Recommendations Regarding Food Preferences and Nutritional Support; Allow Patient to Plan and Order Diet when Possible; Monitor Laboratory Values That Indicate Nutritional Well-being; Consult Sde for Nutritional Support Regarding Requirements; Document Actual Weight Initially and Weekly (Do Not Estimate); Encourage Patient Participation in Maintaining a Food Log as Indicated; Educate Patient on the Importance of Maintaining an Adequate Caloric Intake (NALDO Durán) Outcome: Patient will Receive Adequate Calories and Fluid Volume to Meet Metabolic Needs (NALDO Durán) Status: Ongoing (NALDO Durán) Outcome: Patient will Select Foods or Meals that Support Adequate Nutrition (NALDO Durán) Status: Ongoing (NALDO Durán) Status: Ongoing (NALDO Durán)
[2016-06-25 07:41] LABS: HEMATOCRIT 26.4 % (36.0-47.0); HGB HCT DIFFERENCE 1.5; MEAN CORPUSCULAR HEMOGLOBIN 30.7 pg (27.0-33.4); MEAN CORPUSCULAR VOLUME 88 fl (80-97); RED BLOOD COUNT 3.02 10^6/uL (3.72-5.28); RED CELL DISTRIBUTION WIDTH 12.6 % (11.5-14.0); WHITE BLOOD COUNT 13.3 10^3/uL (4.0-10.5)
[2016-06-25 07:48] LABS: HEMOGLOBIN 9.3 g/dL (12.0-15.5)
[2016-06-25] MEDS: DOCUSATE SODIUM 100 MG CAPSULE PO SCH ×2 (10:06→17:32)
[2016-06-25] MEDS: SENNOSIDES/DOCUSATE 8.6-50 MG 1 EACH TABLET PO SCH (10:07)
[2016-06-25] MEDS: FERROUS SULFATE 325 MG TABLET PO SCH ×2 (10:07→17:33)
[2016-06-25] MEDS: PRENATAL VITAMIN W-O CA NO5/FE FUMARATE/FA CAPSULE PO SCH (11:04)
--- NOTE | 2016-06-25 11:41 | PDOC PROGRESS REPORT ---
Subjective-OB Subjective: Post Delivery Day: 25 year old. Denies any needs at this time. Pt doing well, no complaints of headache or vis changes. She reports large clot last night but decreased bleeding since then. She is voiding well and on regular diet. Physical Exam (OB) Vital Signs: Temp Pulse Resp BP Pulse Ox 97.7 F 91 16 119/66 100 06/25/16 07:54 06/25/16 07:54 06/25/16 07:54 06/25/16 07:54 06/25/16 07:54 Intake & Output 06/24/16 06/25/16 06/26/16 06:59 06:59 06:59 Intake Total 600 Balance 600 Weight 76.8 kg - PIH/Pre-Eclampsia DTR's: 2 + Clonus: Negative Headache: Absent Epigastric Pain: No Visual Changes: No - Lochia Lochia Amount: Small 10-25 ml Lochia Color: Rubra/Red - Abdomen Description: Tender, Soft Hernia Present: No Fundal Description: Firm, Midline Fundal Height: u/u - u/2 Objective-Diagnostic Laboratory: 06/25/16 07:32 06/25/16 07:32 WBC 13.3 H RBC 3.02 L Hgb 9.3 L D Hct 26.4 L MCV 88 MCH 30.7 MCHC 35.0 RDW 12.6 Plt Count 368 Assessment and Plan(PN) - Assessment and Plan (1) Gestational [-induced] hypertension without significant proteinuria , complicating childbirth Is this a current diagnosis for this admission?: Yes (2) Vaginal delivery Is this a current diagnosis for this admission?: Yes - Time Spent with Patient Time with patient: Less than 15 minutes Medications reviewed and adjusted accordingly: Yes - Disposition Anticipated Discharge: Home Within: within 24 hours, within 48 hours
[2016-06-25] MEDS: ZOLPIDEM TARTRATE 5 MG TABLET PO SCH (22:54)
[2016-06-26] MEDS: IBUPROFEN 800 MG TABLET PO SCH ×2 (05:14→14:34)
[2016-06-26 09:00] VITALS: BP 119/58
[2016-06-26] MEDS: PRENATAL VITAMIN W-O CA NO5/FE FUMARATE/FA CAPSULE PO SCH (09:09)
[2016-06-26] MEDS: SENNOSIDES/DOCUSATE 8.6-50 MG 1 EACH TABLET PO SCH (09:09)
[2016-06-26] MEDS: DOCUSATE SODIUM 100 MG CAPSULE PO SCH ×2 (09:09→17:28)
[2016-06-26] MEDS: FERROUS SULFATE 325 MG TABLET PO SCH ×2 (09:10→17:28)
--- NOTE | 2016-06-26 11:34 | PDOC DISCHARGE SUMMARY ---
Final Diagnosis Discharge Date: 06/26/16 - Final Diagnosis (1) Gestational [-induced] hypertension without significant proteinuria , complicating childbirth Is this a current diagnosis for this admission?: Yes (2) Vaginal delivery Is this a current diagnosis for this admission?: Yes Discharge Data - Discharge Medication Home Medications: Vit#96/Ferrous Fum/FA [ Tablet] 1 each PO DAILY 10/09/13 Reason(s) for Admission: Induction of Labor Procedures: NST Intrapartum Procedure(s): Spontaneous Vaginal Delivery - Diagnosis Test Laboratory: Temp Pulse Resp BP Pulse Ox 97.7 F 91 16 119/66 100 06/25/16 07:54 06/25/16 07:54 06/25/16 07:54 06/25/16 07:54 06/25/16 07:54 06/23/16 06/23/16 06/25/16 10:00 10:25 07:32 RBC 3.70 L 3.02 L Hgb 11.5 L 9.3 L D Hct 32.0 L 26.4 L Urine Opiates Screen NEGATIVE - Discharge information/Instructions Discharge Activity: Activity As Tolerated, Pelvic Rest Discharge Diet: Regular Disposition: HOME, SELF-CARE Follow up with: [facility] in: 1, Weeks
--- NOTE | 2016-07-05 15:25 | Delivery Summary ---
Del Sum A-C Datetime Report Generated by CPN: 07/05/2016 15:25 ADMISSION DATA Chief Complaint: Scheduled Induction of Labor Indication for Induction: Gest. HTN/PreEclampsia/Eclampsia Admission Impression: Term, Intrauterine Admit Provider Comments: IOL for Gestational HTN Proven for 6lbs 14oz Hx asthma Hx smoker Will admit and began IOL with Pitocin DELIVERY PERSONNEL Delivery Doctor:: Africa Conrad CNM Labor and Delivery Nurse:: Lyssa Rebolledo RNpourer metal Nurse:: NALDO [facility] Mother/PIN BALL MACHINE MECHANIC: Erica Hayes CST Additional Personnel: : Janet Kapadia RN MATERNAL INFORMATION Delivery Anesthesia: None Medications After Delivery: Pitocin Bolus-Please Comment; Pitocin Drip 20 Units/1000ml NSS; Other-Please Comment Meds After Delivery Comment: Cytotec 1000mcg FL given by Magalis Conrad CNM Estimated Blood Loss (ml): 550 Maternal Complications: None Provider Comments: pt on hands and knees with increased urge to push placed in lithotomy position pushing well delivery of viable female infant over intact perineum JOHANNA nuchal cord easily reduced infant to abdomen spontaneous cry 3vc placenta intact and delivered in brown fashion uterus firming followed by atony uterus explored small trailing membranes removed cytotec 1000 mcg per rectum with pitocin bolus eBl 550 cc hemostasis achieved bonding well with LABOR SUMMARY EDC: 07/07/2016 00:00 No. Babies in Womb: 1 Attempted: No Labor Anesthesia: None LABOR INFORMATION Reason for Induction: Chronic Hypertension; Gestational Hypertension Onset of Labor: 06/23/2016 13:30 Complete Dilatation: 06/24/2016 14:04 Cervical Ripening Agents: Cervidil Oxytocin: Induction Group B Beta Strep: negative Antibiotics # of Doses: 0 Steroids Given: None Reason Steroids Not Administered: Not Applicable MEMBRANES Membranes Rupture Method: Spontaneous Rupture of Membranes: 06/24/2016 09:00 Length of Rupture (hr): 5.17 Amniotic Fluid Color: Clear Amniotic Fluid Amount: Moderate Amniotic Fluid Odor: Normal STAGES OF LABOR Stage 1 hr: 24 Stage 1 min: 34 Stage 2 hr: 0 Stage 2 min: 6 Stage 3 hr: 0 Stage 3 min: 3 Total Time in Labor hr: 24 Total Time in Labor min: 43 VAGINAL DELIVERY Episiotomy: None Laceration Extension: N/A Laceration Type: None Laceration Repair: Not Applicable Sponge Count Correct: N/A Sharps Count Correct: N/A CSECTION DELIVERY Primary Indication: N/A Secondary Indication: N/A CSection Incidence: N/A Labor: N/A Elective: N/A CSection Incision: N/A BABY A INFORMATION Infant Delivery Date/Time: 06/24/2016 14:10 Method of Delivery: Vaginal Born in Route : No : N/A Forceps: N/A Vacuum Extraction: N/A Shoulder Dystocia : No PRESENTATION/POSITION BABY A Presentation: Cephalic Cephalic Presentation: Vertex Vertex Position: Left Occipital Anterior Breech Presentation: N/A PLACENTA INFORMATION BABY A Placenta Delivery Time : 06/24/2016 14:13 Placenta Method of Delivery: Spontaneous Placenta Status: Delivered SCORES BABY A Heart Rate 1 min: >100 bpm Resp Effort 1 min: Good Cry Reflex Irritability 1 min: Cough or Sneeze or Pulls Away Muscle Tone 1 min: Active Motion Color 1 min: Body [place], Extremities Blue Resuscitation Effort 1 min: N/A SCORE 1 MIN: 9 Heart Rate 5 min: >100 bpm Resp Effort 5 min: Good Cry Reflex Irritability 5 min: Cough or Sneeze or Pulls Away Muscle Tone 5 min: Active Motion Color 5 min: Body [place], Extremities Blue Resuscitation Effort 5 min: N/A SCORE 5 MIN: 9 INFANT INFORMATION BABY A Gestational Age at Delivery: 38.0 Gestational Status: Early Term- 37- 38.6 Weeks Outcome : Liveborn Condition : Stable Infant Sex: Female IDENTIFICATION BABY A Verification Date/Time: 06/24/2016 14:40 ID Band Number: [id number] Mother's Name Verified: Yes RN Verifying Infant: Destin Garcia MADDY Additional Verifying Personnel: Guerline Gramajo RN WEIGHT/LENGTH BABY A Birthweight (gm): 3000 Infant Weight (lb): 6 Weight (oz): 10 Infant Length (in): 19.25 Infant Length (cm): 48.90 CORD INFORMATION BABY A No. Cord Vessels: 3 Nuchal Cord : Around Neck x1, Loose Cord Blood Taken: Yes-For Eval (Mom's Blood Type - or O+) (Annotations: Data stored by [facility] on behalf of user) Suction: None ASSESSMENT BABY A Complications: Multiple Variable Decels Physical Findings at Delivery: Within Normal Limits Infant Respirations: Appears Normal Skin to Skin: Yes Belt Molder/ALS Called : No Care By: D. Bellavance RNC Transferred To: Nursery BABY B INFORMATION : N/A SIGNATURES Assignment: Crystal Jimenez MD Signature: with User ID: [email or web address] : with User ID: [email or web address] : I personally evaluated and examined the patient in conjunction with the MLP and agree with the assessment, treatment plan and disposition.
== END 2016-06-26 17:48 | disposition home or self-care (01) | DRG 775 ==
LOC: LR 10:00 → 2S 06-24 16:38
PROVIDERS: ADMIT Obstetrics & Gynecology; ATTEND Obstetrics & Gynecology
PROC: 10E0XZZ Delivery of Products of Conception, External Approach (ICD-10-PCS; principal; 2016-06-23)
PROC: 3E0P7GC Introduction of Other Therapeutic Substance into Female Reproductive, Via Natural or Artificial Opening (ICD-10-PCS; 2016-06-23)
PROC: 4A1HXCZ Monitoring of Products of Conception, Cardiac Rate, External Approach (ICD-10-PCS; 2016-06-23)
PROC: 3E0234Z Introduction of Serum, Toxoid and Vaccine into Muscle, Percutaneous Approach (ICD-10-PCS; 2016-06-26)
PROC: 3E0234Z Introduction of Serum, Toxoid and Vaccine into Muscle, Percutaneous Approach (ICD-10-PCS; 2016-06-26)
DX: O13.4 Gestational [pregnancy-induced] hypertension without significant proteinuria, complicating childbirth (principal); O99.52 Diseases of the respiratory system complicating childbirth; J45.909 Unspecified asthma, uncomplicated; O99.334 Smoking (tobacco) complicating childbirth; F17.210 Nicotine dependence, cigarettes, uncomplicated; O69.81X0 Labor and delivery complicated by cord around neck, without compression, not applicable or unspecified; O76 Abnormality in fetal heart rate and rhythm complicating labor and delivery; Z23 Encounter for immunization; Z91.030 Bee allergy status; Z88.8 Allergy status to other drugs, medicaments and biological substances; Z3A.38 38 weeks gestation of pregnancy; Z37.0 Single live birth
CPT/HCPCS: 36415; 80307; 81005; 85025; 85027; 86592; 86850; 86900; 86901; 88307; 90686; 90715; J2300; J2550; J2590; J3490

== ENCOUNTER → 2019-02-05 | Outpatient (CLI) | payer MEDICAID ==
[2019-02-05 17:45] LABS: ALBUMIN 3.4 g/dL (3.5-5.0); ALKALINE PHOSPHATASE 127 U/L (38-126); ASPARTATE AMINO TRANSFERASE 18 U/L (14-36); BILIRUBIN,DIRECT 0.2 mg/dL (0.0-0.4); BILIRUBIN,TOTAL 0.4 mg/dL (0.2-1.3); TOTAL PROTEIN 6.3 g/dL (6.3-8.2)
== END ==
LOC: OD 16:45
PROVIDERS: ATTEND Midwife
DX: Z34.83 Encounter for supervision of other normal pregnancy, third trimester (principal); L29.9 Pruritus, unspecified
CPT/HCPCS: 36415; 80076; 82239